=== PATIENT | female | born 1985 | race Caucasian/White ===

== ENCOUNTER → 2019-10-03 | Outpatient (CLI) | payer MEDICARE, OTHER ==
--- NOTE | 2019-10-03 22:49 | MR ---
EXAMINATION TYPE: MR brain wo/w con DATE OF EXAM: 10/03/2019 COMPARISON: Prior MRI brain February 13, 2016 HISTORY: MS, compare to 2016 MRI for progression TECHNIQUE: Multiplanar, multisequence images of the brain and brainstem is performed without and with IV contras t, utilizing 6 mL intravenous Gadavist gadolinium contrast is administered intravenously. Demyelinat ing disease protocol with additional Sagittal Flair sequence performed. FINDINGS: T2 Lesions Present : Yes Approximate Number of Lesions: Approximately 50 scattered Locations Identified : Scattered Size of Reference Lesion(s): 1. Stable right frontal periventricular lesion measuring 10 x 5 x 4 mm axial image 20 and sagittal im age 29 Enhancing Lesion(s) Present: Yes, for reference 4 mm deep parietal enhancing lesion axial image 19. T1 Hypointense Lesion(s) Present: Yes Change from Prior: New single enhancing lesion noted. Few new lesions suspected for reference smaller right frontal lesions axial image 23. Diffusion weighted images demonstrate no evidence of a recent infarct or other diffusion abnormality. There is no worrisome extra-axial fluid collection. The ventricular system and cisternal spaces ar e normal in size and appearance. The brain volume is age appropriate. Midline structures demonstrate normal morphology. The craniocervical junction appears within normal limits. Post contrast images demonstrate no abnormal enhancement. The dural venous sinuses appear pa tent. Some mucosal thickening bilateral sphenoid sinuses with new dependent fluid left sphenoid sinus axial image 10 and tiny air-fluid level left maxillary sinus now noted. IMPRESSION: 1. Moderate white matter changes redemonstrated presumed on the basis of known multiple sclerosis wit h progression in lesions felt present from 2016 study and new single enhancing lesion noted. 2. New acute on chronic paranasal sinus disease as detailed above.
--- NOTE | 2019-10-03 23:00 | MR ---
EXAMINATION TYPE: MR cspine/tspine wo con DATE OF EXAM: 10/03/2019 COMPARISON: Prior MRI cervical spine February 13, 2016. Prior MRI thoracic spine February 19, 2016. HISTORY: Multiple sclerosis with weakness. TECHNIQUE: Multiplanar, multisequence imaging of cervical and thoracic spine are performed without co ntrast, demyelinating protocol with additional PD sagittal sequence of the spine acquired. FINDINGS: C-SPINE: FINDINGS: Sagittal images of the cervical spine show the craniocervical junction to remains within no rmal limits. The cervical and upper thoracic spinal cord is normal in course and caliber. Redemonstr ation of subtle lesions of T2 hyperintensity for reference posterior 13 mm lesion centered C3 level a gain seen sagittal image 7. Additional smaller scattered lesions are seen better on current study whi ch is less artifact for reference posterior 4 mm lesion centered mid to inferior C6 level sagittal im age 7. Subtle roughly 8 mm lesion felt present near C4-C5 disc space level for reference sagittal lotus ge 6. Vertebral alignment is stable and anatomic. Persistent mild to moderate disc space narrowing C 3-C4 level. The vertebral body and intravertebral disk heights otherwise are normal. The bone marrow signal intensity is within normal limits. Axial images redemonstrate small left paracentral disc protrusion effacing the anterolateral thecal s ac at C3-C4 level on axial image 38. This is thought stable. Subtle posterior lesion inferior C2 level axial image 48 is not present on current study. Additional lesion posterior mid C3 levels axial image 41 is thought present extending better seen maximal dimens ion 38. Larger diffuse lesion C4-C5 level axial image 30. Subtle posterior lesion inferior C6 level a xial image 17. IMPRESSION: Better visualization or possible increased number of cervical spinal cord lesions as deta iled above. Latter is favored. Stable small disc herniation at C3-C4 level noted. T-SPINE: Spinal cord demonstrates normal course and caliber as passes through the thoracic spine. Redemonstrat ion of subtle roughly 9 mm lesion centered superior T10 level sagittal image 7 not significantly spear ged from prior. Vertebral body heights and alignment remain satisfactory. Bone marrow signal intensi ty is preserved. Tiny posterior disc herniations minimally effaces the anterior thecal sac lower thor acic levels unchanged from prior. Review of the axial images shows no significant spinal canal stenosis or neural foraminal narrowing a t any thoracic level. Axial images confirm subtle T2 hyperintense lesion centrally near T9-T10 disc space axial image 10. No additional definitive new thoracic lesions are identified. IMPRESSION: Stable faint T2 hyperintense lesion near superior T10 level. No definitive new thoracic s sergio cord lesions identified.
== END | disposition home or self-care (01) ==
LOC: RADMRIMAIN 19:15
PROVIDERS: ATTEND Psychiatry & Neurology Neurology
DX: G35 Multiple sclerosis (principal); R55 Syncope and collapse
CPT/HCPCS: 70553; 72141; 72146; A9585

== ENCOUNTER → 2020-06-02 | Outpatient (CLI) | payer MEDICARE ==
--- NOTE | 2020-06-02 14:04 | USB ---
Reason for exam: clinical finding. History: Patient is nulliparous. Taking hormonal contraceptives for 3 years beginning at age 18. Indicated problem(s): lump or thickening in the left breast. Physical Findings: Nurse Summary: left breast lump since January, pain at site comes and goes (nurse shavon). US Breast LT Left complete breast ultrasound includes all four quadrants, the retroareolar region and axilla. Finding demonstrates no cystic or solid lesion seen. These results were verbally communicated with the patient and result sheet given to the patient on 06/02/20. ASSESSMENT: Negative, BI-RAD 1 RECOMMENDATION: Routine screening mammogram of both breasts at age 42. (unless clinical indication to start sooner) Manage on a clinical basis with regard to pain and any suspicious palpable areas.
== END | disposition home or self-care (01) ==
LOC: RADUSWWP 11:30
PROVIDERS: ATTEND Family Medicine
DX: N63.21 Unspecified lump in the left breast, upper outer quadrant (principal)

== ENCOUNTER → 2021-05-26 | Outpatient (CLI) | payer BC, MEDICARE ==
--- NOTE | 2021-05-26 17:23 | XR ---
Nasal bones and facial bones HISTORY:[id number] CONTUSION OF THE NOSE 3 views of the facial bones, 4 views of the nasal bones submitted, no comparisons Bone mineralization is maintained. Orbits are intact. Paranasal sinuses are well aerated. Nasal bone is intact. IMPRESSION: No evident fracture or dislocation. CT scan could be performed for increased sensitivity as indicated.
== END | disposition home or self-care (01) ==
LOC: RADXRYALE 10:24
PROVIDERS: ATTEND Physician Assistant Medical
DX: S00.33XA Contusion of nose, initial encounter (principal)
CPT/HCPCS: 70140; 70160

== ENCOUNTER → 2021-07-22 | Outpatient (CLI) | payer MEDICARE ==
--- NOTE | 2021-07-22 12:23 | MR ---
EXAMINATION TYPE: MR brain wo/w con DATE OF EXAM: 07/22/2021 COMPARISON: 10/03/2019 HISTORY: MS follow up, compare to prior MRI 2019. CONTRAST: Performed utilizing 5.5 mL intravenous Gadavist gadolinium contrast. TECHNIQUE: Multiplanar, multiecho imaging on a 3.0 Sunshine magnet is performed through the brain. Stud y is performed within 24 hours of arrival to the hospital. The craniovertebral junction is normal. The pituitary is normal. Diffusion-weighted imaging is performed. There are scattered hyperintensities within the deep white matter may be acute plaques present. There are scattered bilateral white matter changes corresponding to the diffusion sequence abnormalit ies. Additional small white matter changes are present in addition. Findings are nonspecific but can be compatible with multiple sclerosis. These number greater than 10 on each side. Pattern distributio n appears similar to comparison. Reference lesions: 1. 1.0 x 0.6 cm right centrum semiovale frontal lobe series 2701, image 20. Prior measurement 1.0 x 0 .6 cm. 2. 0.9 x 0.8 cm left trilobar region, series 2701 image 18. Prior measurement 0.5 x 0.6 cm. Ventricles and sulci are appropriate for the patient age. No abnormal enhancement is evident. Enhancing lesions are not identified. IMPRESSIONS: 1. There appears to be some progression of the size is similar distribution of the previous white mat ter changes. Some of these plaques appear to be active with abnormal signal on diffusion.
--- NOTE | 2021-07-22 16:57 | MR ---
EXAMINATION TYPE: MR cspine/tspine wo/w con DATE OF EXAM: 07/22/2021 COMPARISON: 10/03/2019 HISTORY: MS follow up, compare to prior MRI 2019. CONTRAST: Performed utilizing 5.5 mL intravenous Gadavist gadolinium contrast. TECHNIQUE: Multiplanar multiecho imaging on a 3.0 Sunshine magnet is performed through the cervical spin e. FINDINGS: The craniovertebral junction is normal. Vertebral body alignment is normal. No focal disc herniations or significant disc bulges are evident. Disc hydration level preserved. No spinal canal stenosis or neural foraminal stenosis. Attention is paid to the cervical spinal cord. Previous subtle hyperintensity within the cord is not identified on current exam. IMPRESSIONS: 1. Apparent resolution of previous multiple sclerosis plaques within the spinal cord. No expansion or enhancement is evident. EXAMINATION TYPE: MR cspine/tspine wo/w con DATE OF EXAM: 07/22/2021 COMPARISON: 10/03/2019 HISTORY: MS follow up, compare to prior MRI 2019. CONTRAST: Performed utilizing 5.5 mL intravenous Gadavist gadolinium contrast. TECHNIQUE: Multiplanar, multiecho imaging on a 3.0 Sunshine magnet is performed through the thoracic spi ne. Spinal cord maintains normal signal through its visualized course. No suspicious atherosclerosis plaq ues evident. Previous T10 level plaque is not identified. Vertebral body alignment is normal. Vertebral body heights are preserved. Disc heights are preserved. Disc hydration levels are preserved. No spinal canal stenosis is evident. IMPRESSIONS: 1. Resolution previous lower thoracic spinal cord multiple sclerosis plaque.
== END | disposition home or self-care (01) ==
LOC: RADMRIMAIN 09:04
PROVIDERS: ATTEND Psychiatry & Neurology Neurology
DX: G35 Multiple sclerosis (principal)
CPT/HCPCS: 70553; 72156; 72157; A9585

== ENCOUNTER → 2022-06-30 | Outpatient (CLI) | payer MEDICARE ==
--- NOTE | 2022-07-01 09:21 | XR ---
EXAMINATION TYPE: XR chest 2V DATE OF EXAM: 06/30/2022 COMPARISON: NONE TECHNIQUE: PA and lateral views submitted. HISTORY: Cough FINDINGS: The lungs are clear and there is no pneumothorax, pleural effusion, or focal pneumonia. Hyperinflat ion correlate for asthma or COPD. Chronic appearing deformity posterior left lower rib cage. IMPRESSION: 1. Hyperexpansion of the lungs can be associated with COPD or asthma..
== END | disposition home or self-care (01) ==
LOC: RADXRYALE 16:35
PROVIDERS: ATTEND Physician Assistant Medical
DX: J44.9 Chronic obstructive pulmonary disease, unspecified (principal); Z86.16 Personal history of COVID-19
CPT/HCPCS: 71046

== ENCOUNTER → 2023-01-18 | Outpatient (CLI) | payer MEDICARE, OTHER ==
--- NOTE | 2023-01-18 17:32 | MR ---
EXAMINATION TYPE: MR brain/cspine wo DATE OF EXAM: 01/18/2023 5:06 PM CLINICAL INDICATION:Female, 37 years old with history of G35 MULTIPLE SCLEROSIS; Prior on synapse, MS follow up COMPARISON: 02/13/2016 TECHNIQUE: Multiplanar, multisequence images of the brain and brainstem is performed. Multi planar, multi sequence imaging was performed utilizing: T1-weighted, T2-weighted, and turbo inv ersion recovery imaging of the cervical spine. MR IV Contrast: None FINDINGS: BRAIN: Scattered high T2 signal within the periventricular white matter. Some of the lesion such as lesion i n the left parietal region now measuring 7 mm, previously 3 mm with an adjacent lesion measuring 5 mm which is new. Other areas of white matter change appears stable in size compared to 2016. No evidenc e for restricted diffusion. Diffusion weighted images demonstrate no evidence of a recent infarct or other diffusion abnormality. There is no extra-axial fluid collection or significant white matter signal abnormality. The ventr icular system and cisternal spaces are normal in size and appearance. The brain volume is age approp riate. Midline structures demonstrate normal morphology. The craniocervical junction appears within normal limits. The dural venous sinuses appear patent. The bone marrow signal is within normal limits. Paranasal sinuses and mastoid air cells: Moderate scattered paranasal sinus disease. Left mastoid air cell effusion. Visualized orbits: Orbital contents are intact. C-SPINE: Alignment: The cervical vertebral bodies have preserved heights. Alignment is within normal limits gi lesia patient positioning. Bones: Bone signal is within normal limits. Multilevel degenerative disc disease is noted and most p ronounced at the vertebral levels. Cord: Scattered high signal seen within the cord at the dorsal columns at the level C6 within the rig ht posterior spinal cord at the superior endplate of C5 and posteriorly at the level of C2. These are not clearly seen on prior but there was more motion artifact and poor resolution compared to today's exam. The area superior endplate of C5 is not definitively visualized. The dorsal columns at the lev el of C6 appears similar given differences in MRI. Discs: Intervertebral disc signal is maintained. C2-C3: No significant disc pathology. The spinal canal is patent. No neural foraminal stenosis. C3-C4: A disc osteophyte complex is present which minimally narrows the ventral subarachnoid space. Bilateral facet and uncovertebral joint arthropathy are present with mild bilateral neural foraminal stenosis. C4-C5: No significant disc pathology. The spinal canal is patent. No neural foraminal stenosis. C5-C6: No significant disc pathology. The spinal canal is patent. No neural foraminal stenosis. C6-C7: No significant disc pathology. The spinal canal is patent. No neural foraminal stenosis. C7-T1: No significant disc pathology. The spinal canal is patent. No neural foraminal stenosis. Other: None. IMPRESSION: 1. Scattered white matter changes which have mildly progressed since 2016, no evidence for active de myelination. No evidence of intracranial mass, acute/subacute infarct. Moderate paranasal sinus disea se. 2. Scattered cord signal abnormalities throughout the cervical spine. The C6 level signal abnormalit ies felt to be present on most recent prior. The cord signal abnormality at C5 superior endplate is n ot clearly seen on prior 3. As for significant spinal canal or neural foraminal stenosis. 4. Moderate paranasal sinus disease most pronounced in the maxillary sinuses.
--- NOTE | 2023-01-18 22:03 | MR ---
EXAMINATION TYPE: MR thoracic spine wo con DATE OF EXAM: 01/18/2023 5:14 PM COMPARISON: 10/03/2019, 07/22/2021 INDICATION: Patient age:Female; 37 years old; Reason for study: G35 MULTIPLE SCLEROSIS; MS follow up TECHNIQUE: Multi planar, multi sequence imaging was performed utilizing: T1-weighted, short-tau inver noelle recovery and T2-weighted of the thoracic spine. The patient was not given Gadolinium. IV Contrast: None FINDINGS: The thoracic vertebral bodies have preserved heights and alignment. The osseous structure have normal signal intensity. There is no evidence of extradural defects or central spinal canal narrowing at an y thoracic vertebral body level. Intervertebral discs demonstrate normal signal intensity. Increased spinal cord signal centrally extending partially 8 mm in caudocranial dimension at the leve l of T10 superior endplate. This is not definitely seen on immediate prior but present on 10/03/2019. IMPRESSION: 1. Spinal cord lesion at the level of T10 not definitively seen on immediate prior but on prior befo re that on 10/03/2019. This is located centrally in the spinal cord. 2. No evidence for significant spinal canal or neural foraminal stenosis.
== END | disposition home or self-care (01) ==
LOC: RADMRIMAIN 15:30
PROVIDERS: ATTEND Psychiatry & Neurology Neurology
DX: G35 Multiple sclerosis (principal); G93.89 Other specified disorders of brain; G95.89 Other specified diseases of spinal cord; J34.89 Other specified disorders of nose and nasal sinuses
CPT/HCPCS: 70551; 72141; 72146

== ENCOUNTER 2024-01-12 14:12 | Observation (INO) | payer MEDICARE, OTHER ==
[2024-01-12] MEDS: SODIUM CHLORIDE 0.9% 1,000 ML IV STA (15:02)
[2024-01-12] MEDS: ONDANSETRON 4 MG/2 ML VIAL IVP STA (15:02)
[2024-01-12] MEDS: MORPHINE SULFATE 2 MG/ML SYRINGE IVP ONE (15:05)
--- NOTE | 2024-01-12 15:12 | ED ---
Abdominal Pain HPI - General Chief Complaint: Abdominal Pain Stated Complaint: abd pain Time Seen by Provider: 01/12/24 14:30 Source: patient, RN notes reviewed Mode of arrival: ambulatory Limitations: no limitations - History of Present Illness Initial Comments: 38-year-old female chief complaint of diffuse abdominal pain that started this afternoon. Patient states that she went to work this morning and started having severe abdominal pain with associated bloating. Patient states that when she sits experience this abdominal pain she is also had associated nausea and vomiting since. She denies known fevers at home. 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 Patient still has her gallbladder and appendix, denies history of pancreatitis or GI bleeds. Denies hematochezia, hematemesis, dyschezia, dysuria. States her last bowel movement was this morning that was regular and formed. - Related Data Home Medications Medication Instructions Recorded Confirmed Albuterol Inhaler [Ventolin Hfa 1 - 2 puff INHALATION Q6HR PRN 05/06/16 05/12/16 Inhaler] L.acidoph,Paracasei, B.lactis 1 each PO DAILY 05/06/16 05/12/16 [Probiotic] Multivitamins, Thera [Multivitamin] 1 tab PO DAILY 05/06/16 05/06/16 Albuterol Nebulized [Ventolin 2.5 mg INHALATION RT-Q4H PRN 01/12/24 01/12/24 Nebulized] Montelukast [Singulair] 10 mg PO HS 01/12/24 01/12/24 Vitamin B-12(Unknown Dose) 1 tab PO DAILY 01/12/24 01/12/24 Vitamin D3(Unknown Dose) 1 tab PO DAILY 01/12/24 01/12/24 predniSONE See Taper PO DIRECTED 01/12/24 01/12/24 Allergies Allergy/AdvReac Type Severity Reaction Status Date / Time erythromycin base AdvReac Unknown Nausea & Verified 01/12/24 14:27 Vomiting Review of Systems ROS Statement: Those systems with pertinent positive or pertinent negative responses have been documented in the HPI. ROS Other: All systems not noted in ROS Statement are negative. Past Medical History Past Medical History: Asthma, Fibromyalgia, GERD/Reflux Additional Past Medical History / Comment(s): GASTROSCHISIS AT , CONSTIPATION, MULTIPLE SCLEROSIS- STATES SHES "CLUMSY". STATES EYES ARE LIGHT SENSITIVE AND BILATERAL HEARING LOSS, BROKEN NOSE & SINUS CYSTS. , USES MARIJUANA AND YOGA FOR PAIN . History of Any Multi-Drug Resistant Organisms: None Reported Past Surgical History: Adenoidectomy, Section, Tonsillectomy Additional Past Surgical History / Comment(s): GASTROSCHISIS SURGERY, UMBILICAL SURGERY AT 4 YRS OLD. Past Anesthesia/Blood Transfusion Reactions: No Reported Reaction, Family History of Problems w/ Anesthesia Additional Past Anesthesia/Blood Transfusion Reaction / Comment(s): MOTHER=PONV Past Psychological History: Anxiety, Depression Smoking Status: Never smoker Past Alcohol Use History: Daily Past Drug Use History: Marijuana - Past Family History Mother Family Medical History: Cancer Additional Family Medical History / Comment(s): CLL General Exam Limitations: no limitations General appearance: in no apparent distress, other (Diaphoretic) Head exam: Present: atraumatic, normocephalic, normal inspection Eye exam: Present: normal appearance, PERRL, EOMI. Absent: scleral icterus, conjunctival injection, periorbital swelling ENT exam: Present: normal exam, mucous membranes moist Neck exam: Present: normal inspection. Absent: tenderness, meningismus, lymphadenopathy Respiratory exam: Present: normal lung sounds bilaterally. Absent: respiratory distress, wheezes, rales, rhonchi, stridor Cardiovascular Exam: Present: regular rate, normal rhythm, normal heart sounds. Absent: systolic murmur, diastolic murmur, rubs, gallop, clicks GI/Abdominal exam: Present: soft, distended, tenderness (diffuse tenderness to percussion). Absent: guarding Course Vital Signs 01/12/24 01/12/24 14:24 16:23 Temperature 97.8 F Pulse Rate 56 L 55 L Respiratory 18 20 Rate Blood Pressure 170/80 159/87 O2 Sat by Pulse 100 99 Oximetry Medical Decision Making - Medical Decision Making Was pt. sent in by a medical professional or institution (, PA, HUMAN RELATIONS TEACHER, urgent care, hospital, or assisted...) When possible be specific @ -No Did you speak to anyone other than the patient for history (EMS, parent, family, police, friend...)? What history was obtained from this source @ -No Did you review nursing and triage notes (agree or disagree)? Why? @ -I reviewed and agree with nursing and triage notes Were old charts reviewed (outside hosp., previous admission, EMS record, old EKG, old radiological studies, urgent care reports/EKG's, assisted records)? Report findings @ -No old charts were reviewed Differential Diagnosis (chest pain, altered mental status, abdominal pain women, abdominal pain men, vaginal bleeding, weakness, fever, dyspnea, syncope, headache, dizziness, GI bleed, back pain, seizure, CVA, palpatations, mental health, musculoskeletal)? @ -Differential Abdominal Pain Women: Appendicitis, Cholecystitis, diverticulosis, ischemic bowel, pancreatitis, hepatitis, UTI, gastroenteritis, AAA, incarcerated hernia, bowel obstruction, constipation, inflammatory bowel, hepatitis, peptic ulcer disease, splenic infarction, perforated viscus, vulvitis, ovarian torsion, PID, kidney stone, placenta abruption, this is not meant to be an all-inclusive list EKG interpreted by me (3pts min.). @ -None X-rays interpreted by me (1pt min.). @ -xray of KUB reveals nonspecific after with dilated loops in the upper abdomen cannot exclude obstructive pattern. CT interpreted by me (1pt min.). @ - CT abdomen pelvis with contrast reveals endings worrisome for malignancy and omental metastatic, recommend follow-up CT scan with oral and IV contrast U/S interpreted by me (1pt. min.). @ -None done What testing was considered but not performed or refused? (CT, X-rays, U/S, labs)? Why? @ -None What meds were considered but not given or refused? Why? @ -None Did you discuss the management of the patient with other professionals (professionals i.e. , PA, HUMAN RELATIONS TEACHER, lab, RT, psych nurse, social work manager, android platform developer, teacher, aoc aadc operations staff officer, case maker)? Give summary @ -No Was smoking cessation discussed for >3mins.? @ -No Was critical care preformed (if so, how long)? @ -No Were there social determinants of health that impacted care today? How? (Homelessness, low income, unemployed, alcoholism, drug addiction, transportation, low edu. Level, literacy, decrease access to med. care, senior living, rehab)? @ -No Was there de-escalation of care discussed even if they declined (Discuss DNR or withdrawal of care, Hospice)? DNR status @ -No What co-morbidities impacted this encounter? (DM, HTN, Smoking, COPD, CAD, Cancer, CVA, ARF, Chemo, Hep., AIDS, mental health diagnosis, sleep apnea, morbi d obesity)? @ -None Was patient admitted / discharged? Hospital course, mention meds given and route , prescriptions, significant lab abnormalities, going to OR and other pertinent info. @ -Admitted. 38-year-old female chief complaint of abdominal pain. Patient was diaphoretic and in pain on presentation. Patient's abdomen was extremely tender on examination, with percussion causing diffuse pain. Abdominal x-ray was ordered initially to rule out acute process which revealed xray of KUB reveals nonspecific after with dilated loops in the upper abdomen cannot exclude obstructive pattern. Laboratory results revealed leukocytosis of 19 and neutrophil fills elevated at 16.2. Patient CMP within normal limits, normal coagulation profile, urinalysis positive for 2+ ketones, trace protein and trace blood. CT abdomen pelvis with contrast reveals endings worrisome for malignancy and omental metastatic, recommend follow-up CT scan with oral and IV contrast. Carolyn these findings with the patient and recommend outpatient follow- up for further imaging and evaluation with her primary care provider and referral to a foot cutter since she has not seen one in a couple years. Due to patient's intractable pain, would recommend admission. I discussed this patient's case with Dr. Francis, who is agreeable with admission and for oncology recommendation for potential staging. I discussed this case with my attending Dr. Bryant was agreeable with plan and admission. She will be admitted for intractable pain and potential mets. Undiagnosed new problem with uncertain prognosis? @ -yes,, patient CT findings are concerning for abdominal cancer, patient was unaware of these findings to previous. Drug Therapy requiring intensive monitoring for toxicity (Heparin, Nitro, Insulin, Cardizem)? @ -No Were any procedures done? @ -No Diagnosis/symptom? @ -intractable pain, abdominal pain, mets Acute, or Chronic, or Acute on Chronic? @ -Acute Uncomplicated (without systemic symptoms) or Complicated (systemic symptoms)? @ -complicated Side effects of treatment? @ -No Exacerbation, Progression, or Severe Exacerbation? @ -No Poses a threat to life or bodily function? How? (Chest pain, USA, CA, pneumonia, PE, COPD, DKA, ARF, appy, cholecystitis, CVA, Diverticulitis, Homicidal, Suicidal, threat to staff... and all critical care pts) @ -Yes, un-staged and treated metastatic disease can lead to organ dysfunction and potential . - Lab Data Result diagrams: 01/12/24 14:44 01/12/24 14:44 Lab Results 01/12/24 01/12/24 01/12/24 Range/Units 14:44 14:44 14:44 WBC 19.0 H (3.8-10.6) k/uL RBC 4.93 (3.80-5.40) m/uL Hgb 15.7 (11.4-16.0) gm/dL Hct 46.1 H (34.0-46.0) % MCV 93.5 (80.0-100.0) fL MCH 31.8 (25.0-35.0) pg MCHC 34.0 (31.0-37.0) g/dL RDW 12.8 (11.5-15.5) % Plt Count 374 (150-450) k/uL MPV 7.3 Neutrophils % 85 % Lymphocytes % 9 % Monocytes % 4 % Eosinophils % 1 % Basophils % 0 % Neutrophils # 16.2 H (1.3-7.7) k/uL Lymphocytes # 1.7 (1.0-4.8) k/uL Monocytes # 0.7 (0-1.0) k/uL Eosinophils # 0.1 (0-0.7) k/uL Basophils # 0.1 (0-0.2) k/uL PT (10.0-12.5) sec INR (<1.2) APTT (22.0-30.0) sec Sodium (137-145) mmol/L Potassium (3.5-5.1) mmol/L Chloride (98-107) mmol/L Carbon Dioxide (22-30) mmol/L Anion Gap mmol/L BUN (7-17) mg/dL Creatinine (0.52-1.04) mg/dL Est GFR (CKD-EPI)AfAm (>60 ml/min/1.73 sqM) Est GFR (CKD-EPI)NonAf (>60 ml/min/1.73 sqM) Glucose (74-99) mg/dL Plasma Lactic Acid Chuck (0.7-2.0) mmol/L Calcium (8.4-10.2) mg/dL Total Bilirubin (0.2-1.3) mg/dL AST (14-36) U/L ALT (4-34) U/L Alkaline Phosphatase (38-126) U/L Total Protein (6.3-8.2) g/dL Albumin (3.5-5.0) g/dL Amylase (30-110) U/L Lipase (23-300) U/L Urine Color Yellow Urine Appearance Clear (Clear) Urine pH 5.5 (5.0-8.0) Ur Specific [place] >1.050 H (1.001-1.035) Urine Protein Trace H (Negative) Urine Glucose (UA) Negative (Negative) Urine Ketones 2+ H (Negative) Urine Blood Trace H (Negative) Urine Nitrite Negative (Negative) Urine Bilirubin Negative (Negative) Urine Urobilinogen <2.0 (<2.0) mg/dL Ur Leukocyte Esterase Negative (Negative) Urine RBC 4 (0-5) /hpf Urine WBC <1 (0-5) /hpf Ur Squamous Epith Cells 5 H (0-4) /hpf Hyaline Casts 1 (0-2) /lpf Urine Mucus Few H (None) /hpf Urine HCG, Qual Not Detected (Not Detectd) 01/12/24 01/12/24 01/12/24 Range/Units 14:44 14:44 16:05 WBC (3.8-10.6) k/uL RBC (3.80-5.40) m/uL Hgb (11.4-16.0) gm/dL Hct (34.0-46.0) % MCV (80.0-100.0) fL MCH (25.0-35.0) pg MCHC (31.0-37.0) g/dL RDW (11.5-15.5) % Plt Count (150-450) k/uL MPV Neutrophils % % Lymphocytes % % Monocytes % % Eosinophils % % Basophils % % Neutrophils # (1.3-7.7) k/uL Lymphocytes # (1.0-4.8) k/uL Monocytes # (0-1.0) k/uL Eosinophils # (0-0.7) k/uL Basophils # (0-0.2) k/uL PT 10.7 (10.0-12.5) sec INR 1.0 (<1.2) APTT 23.4 (22.0-30.0) sec Sodium 137 (137-145) mmol/L Potassium 3.7 (3.5-5.1) mmol/L Chloride 110 H (98-107) mmol/L Carbon Dioxide 16 L (22-30) mmol/L Anion Gap 11 mmol/L BUN 11 (7-17) mg/dL Creatinine 0.58 (0.52-1.04) mg/dL Est GFR (CKD-EPI)AfAm >90 (>60 ml/min/1.73 sqM) Est GFR (CKD-EPI)NonAf >90 (>60 ml/min/1.73 sqM) Glucose 132 H (74-99) mg/dL Plasma Lactic Acid Chuck 1.3 (0.7-2.0) mmol/L Calcium 9.4 (8.4-10.2) mg/dL Total Bilirubin 1.3 (0.2-1.3) mg/dL AST 21 (14-36) U/L ALT 18 (4-34) U/L Alkaline Phosphatase 90 (38-126) U/L Total Protein 7.2 (6.3-8.2) g/dL Albumin 4.7 (3.5-5.0) g/dL Amylase 79 (30-110) U/L Lipase 179 (23-300) U/L Urine Color Urine Appearance (Clear) Urine pH (5.0-8.0) Ur Specific [place] (1.001-1.035) Urine Protein (Negative) Urine Glucose (UA) (Negative) Urine Ketones (Negative) Urine Blood (Negative) Urine Nitrite (Negative) Urine Bilirubin (Negative) Urine Urobilinogen (<2.0) mg/dL Ur Leukocyte Esterase (Negative) Urine RBC (0-5) /hpf Urine WBC (0-5) /hpf Ur Squamous Epith Cells (0-4) /hpf Hyaline Casts (0-2) /lpf Urine Mucus (None) /hpf Urine HCG, Qual (Not Detectd) Disposition Clinical Impression: Intractable abdominal pain Disposition: [facility] Condition: Poor Referrals: Jeremiah Benites DO [Primary Care Provider] - 1-2 days Decision to Admit Reason: Admit from EC Decision Time: 17:54
[2024-01-12 15:19] LABS: Basophils # (A) 0.1 k/uL (0-0.2); Basophils % (A) 0 %; Eosinophils # (A) 0.1 k/uL (0-0.7); Eosinophils % (A) 1 %; HCT 46.1 % (34.0-46.0); HGB 15.7 gm/dL (11.4-16.0); Lymphocytes # (A) 1.7 k/uL (1.0-4.8); Lymphocytes % (A) 9 %; MCH 31.8 pg (25.0-35.0); MCV 93.5 fL (80.0-100.0); Mean Platelet Volume 7.3; Monocytes # (A) 0.7 k/uL (0-1.0); Monocytes % (A) 4 %; Neutrophils # (A) 16.2 k/uL (1.3-7.7); Neutrophils % (A) 85 %; Platelet Count 374 k/uL (150-450); RBC 4.93 m/uL (3.80-5.40); RDW 12.8 % (11.5-15.5)
--- NOTE | 2024-01-12 15:46 | XR ---
EXAMINATION TYPE: XR KUB DATE OF EXAM: 01/12/2024 COMPARISON: NONE HISTORY: Abdominal pain TECHNIQUE: One view abdominal series FINDINGS: The osseous structures are intact. The bowel gas pattern is nonspecific. Dilated bowel loops in the upper abdomen. Obstruction in the differential diagnosis. Lung bases are clear. Calcifications in the right upper quadrant. IMPRESSION: 1. Nonspecific abdomen. Dilated bowel loops in the upper abdomen. Could not exclude an obstructive p attern. Assessment for free air limited. Recommend CT scan of the abdomen and pelvis.
[2024-01-12 15:49] LABS: ALT 18 U/L (4-34); AST 21 U/L (14-36); African American GFR (CKD) >90 (>60 ml/min/1.73 sqM); Albumin 4.7 g/dL (3.5-5.0); Alkaline Phosphatase 90 U/L (38-126); Amylase 79 U/L (30-110); Anion Gap 11 mmol/L; Blood Urea Nitrogen 11 mg/dL (7-17); Calcium 9.4 mg/dL (8.4-10.2); Carbon Dioxide 16 mmol/L (22-30); Chloride 110 mmol/L (98-107); Glucose 132 mg/dL (74-99); Lipase 179 U/L (23-300); Non-African American GFR(CKD) >90 (>60 ml/min/1.73 sqM); Potassium 3.7 mmol/L (3.5-5.1); Sodium 137 mmol/L (137-145); Total Bilirubin 1.3 mg/dL (0.2-1.3); Total Protein 7.2 g/dL (6.3-8.2)
--- NOTE | 2024-01-12 16:12 | CT ---
EXAMINATION TYPE: CT abdomen pelvis w con CT DLP: 588.5 mGycm, Automated exposure control for dose reduction was used. DATE OF EXAM: 01/12/2024 3:48 PM COMPARISON: CT abdomen pelvis most recent from CLINICAL INDICATION:Female, 38 years old with history of abdominal pain; generalized abd pain. TECHNIQUE: Axial CT abdomen pelvis w con;Sagittal and coronal reformats were created on a separate w orkstation. Contrast used:100 ml mL of Isovue 300 with IV Contrast, (none if empty) Oral contrast used: without Oral Contrast (none if empty) FINDINGS: LOWER CHEST: Unremarkable ABDOMEN LIVER: Unremarkable GALLBLADDER AND BILE DUCTS: Unremarkable. PANCREAS: Unremarkable. SPLEEN: Unremarkable. ADRENAL GLANDS: Unremarkable. KIDNEYS AND URETERS: No evidence of hydronephrosis or renal calculus. The ureters are unremarkable. PELVIS BLADDER: Unremarkable REPRODUCTIVE: Unremarkable. ABDOMEN & PELVIS STOMACH AND BOWEL: No evidence of bowel obstruction. PERITONEUM/RETROPERITONEUM: The omentum and peritoneum appear as a nearly opaque fung Blob. The study must be repeated with oral contrast. Repeat study should be performed with both IV and oral contrast . There is concern for omental cake from a metastatic tumor. VASCULATURE: No evidence of aortic aneurysm. MUSCULOSKELETAL: No acute osseous abnormalities LYMPH NODES: No gross evidence for lymphadenopathy. SOFT TISSUE/ABDOMINAL WALL: Peritoneal metastatic disease may be present, but is not readily visible. IMPRESSION: 1. Findings worrisome for malignancy and omental metastatic. Follow-up CT scan with IV and oral contrast same time would be helpful. If laboratory studies indicate malignancy consider FDG PET-CT fo r initial staging
[2024-01-12] MEDS: HYDROmorphone 1 MG/ML 1 ML SYRINGE IVP STA (16:27)
[2024-01-12 16:44] LABS: Partial Thromboplastin Time 23.4 sec (22.0-30.0); Prothrombin Time 10.7 sec (10.0-12.5)
[2024-01-12 16:57] LABS: Appearance,Urine Clear (Clear); Bilirubin,Urine Negative (Negative); Blood,Urine Trace (Negative); Color,Urine Yellow; Glucose,Urine (UA) Negative (Negative); Hyaline Casts,Urine 1 /lpf (0-2); Leukocyte Esterase,Urine Negative (Negative); Mucus,Urine Few /hpf; Nitrite,Urine Negative (Negative); PH, Urine 5.5 (5.0-8.0); Protein,Urine Trace (Negative); RBC,Urine 4 /hpf (0-5); Squamous Epithelial Cell,Urine 5 /hpf (0-4); Urobilinogen,Urine <2.0 mg/dL (<2.0); WBC,Urine <1 /hpf (0-5)
[2024-01-12 16:59] LABS: Ketones,Urine 2+ (Negative); Specific Gravity,Urine >1.050 (1.001-1.035)
[2024-01-12] MEDS ORDERED: NALOXONE 0.4 MG/ML 1 ML VIAL IV PRN (17:51)
[2024-01-12] MEDS ORDERED: HYDROmorphone 1 MG/ML 1 ML SYRINGE IVP PRN (17:51)
[2024-01-12] MEDS: HYDROmorphone 1 MG/ML 1 ML SYRINGE IVP PRN (18:34)
[2024-01-12] MEDS: ONDANSETRON 4 MG/2 ML VIAL IVP PRN (18:37)
[2024-01-13] MEDS: ONDANSETRON 4 MG/2 ML VIAL IVP PRN (00:50)
[2024-01-13] MEDS: MORPHINE SULFATE 2 MG/ML SYRINGE IVP STA (02:18)
--- NOTE | 2024-01-13 03:00 | P.HPIM ---
History of Present Illness H&P Date: 01/12/24 Patient is a 38-year-old female with a PMH of congenital gastroschisis status post repair at who presents to the emergency room with complaints of abdominal pain and bloating. 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 She subsequently had a regular bowel movement without blood or mucus. Reports the pain is constant, 5 out of 10 at the time of interview, nonradiating, worsened with movement. Patient notes she still has her gallbladder and her appendix. Reports that her menses have been irregular over the past few months and that she is currently 2 weeks late. She denied experiencing urinary symptoms, chest discomfort, shortness of breath, fever, chills, cough, diarrhea. CT abdomen and pelvis in the emergency room was a poor study with findings concerning for malignancy and possible omental metastasis. Repeat imaging with IV and oral contrast was recommended. Laboratory evaluation revealed leukocytosis of 19.0, CO2 16, chloride 110, UA with 2+ ketones with trace blood with urine hCG negative. ED documentation reviewed and case discussed with ED provider. Review of systems: Pertinent positives and negatives as discussed in HPI, a complete review of systems was performed and all other systems are negative. Physical examination: Vital signs reviewed General: non toxic, no distress, appears at stated age, normal weight Derm: no unusual rashes/lesions, warm Head: atraumatic, normocephalic, symmetric Eyes: EOMI, no lid lag, anicteric sclera, pupils equal round reactive to light ENT: Nose and ears atraumatic Neck: No cervical lymphadenopathy, trachea midline, supple Mouth: no lip lesion, mucus membranes moist Cardiovascular: S1S2 reg, no murmur, positive dorsalis pedis pulse bilateral, no edema Lungs: CTA bilateral, no rhonchi, no rales, no accessory muscle use Abdominal: soft, mild periumbilical tenderness, no guarding Ext: muscle strength 5 out of 5 in all 4 extremities grossly, no gross muscle atrophy, no contractures, Neuro: CN II-XI grossly intact, no gross focal neuro deficits Psych: Alert, oriented, appropriate affect Assessment: Abdominal pain with abnormal CT scan findings, suspected malignancy Leukocytosis, likely secondary to acute stressor with no signs of active infection at this time Imaging: CT abdomen and pelvis in the emergency room was a poor study with findings concerning for malignancy and possible omental metastasis. Repeat imaging with IV and oral contrast was recommended. Data Review: Laboratory evaluation revealed leukocytosis of 19.0, CO2 16, chloride 110, UA with 2+ ketones with trace blood with urine hCG negative. Plan: Obtain repeat CT abdomen and pelvis with contrast Pain control Monitor CBC DVT prophylaxis: Lovenox subcu The patient is admitted with an anticipated greater than 2 midnight stay for evaluation of abdominal pain CODE STATUS: Full Code Discussed with: Patient Anticipated discharge place: Home Past Medical History Past Medical History: Asthma, Fibromyalgia, GERD/Reflux Additional Past Medical History / Comment(s): GASTROSCHISIS AT , CONSTIPATION, MULTIPLE SCLEROSIS- STATES SHES "CLUMSY". STATES EYES ARE LIGHT SENSITIVE AND BILATERAL HEARING LOSS, BROKEN NOSE & SINUS CYSTS. , USES MARIJUANA AND YOGA FOR PAIN . History of Any Multi-Drug Resistant Organisms: None Reported Past Surgical History: Adenoidectomy, Section, Tonsillectomy Additional Past Surgical History / Comment(s): GASTROSCHISIS SURGERY, UMBILICAL SURGERY AT 4 YRS OLD. Past Anesthesia/Blood Transfusion Reactions: No Reported Reaction, Family History of Problems w/ Anesthesia Additional Past Anesthesia/Blood Transfusion Reaction / Comment(s): MOTHER=PONV Past Psychological History: Anxiety, Depression Smoking Status: Never smoker Past Alcohol Use History: Daily Past Drug Use History: Marijuana - Past Family History Mother Family Medical History: Cancer Additional Family Medical History / Comment(s): CLL Medications and Allergies Home Medications Medication Instructions Recorded Confirmed Type Albuterol Inhaler [Ventolin Hfa 2 puff INHALATION RT-QID PRN 05/06/16 01/12/24 History Inhaler] L.acidoph,Paracasei, B.lactis 1 cap PO DAILY 05/06/16 01/12/24 History [Probiotic] Multivitamins, Thera [Multivitamin] 1 tab PO DAILY 05/06/16 01/12/24 History Albuterol Nebulized [Ventolin 2.5 mg INHALATION RT-Q4H PRN 01/12/24 01/12/24 History Nebulized] Montelukast [Singulair] 10 mg PO HS 01/12/24 01/12/24 History Vitamin B-12(Unknown Dose) 1 tab PO DAILY 01/12/24 01/12/24 History Vitamin D3(Unknown Dose) 1 tab PO DAILY 01/12/24 01/12/24 History predniSONE See Taper PO DIRECTED 01/12/24 01/12/24 History Allergies Allergy/AdvReac Type Severity Reaction Status Date / Time erythromycin base AdvReac Unknown Nausea & Verified 01/12/24 14:27 Vomiting Physical Exam Vitals: Vital Signs Temp Pulse Resp BP Pulse Ox 01/12/24 23:15 98.4 F 72 20 138/58 98 01/12/24 18:59 98.1 F 64 144/79 97 01/12/24 18:32 98.3 F 61 18 150/84 99 01/12/24 16:23 55 L 20 159/87 99 01/12/24 14:24 97.8 F 56 L 18 170/80 100 Intake and Output 01/12/24 01/12/24 01/13/24 14:59 22:59 06:59 Other: Weight 55.792 kg Results CBC & Chem 7: 01/12/24 14:44 01/12/24 14:44 Labs: Abnormal Lab Results - Last 24 Hours (Table) 01/12/24 01/12/24 01/12/24 Range/Units 14:44 14:44 14:44 WBC 19.0 H (3.8-10.6) k/uL Hct 46.1 H (34.0-46.0) % Neutrophils # 16.2 H (1.3-7.7) k/uL Chloride 110 H (98-107) mmol/L Carbon Dioxide 16 L (22-30) mmol/L Glucose 132 H (74-99) mg/dL Ur Specific [place] >1.050 H (1.001-1.035) Urine Protein Trace H (Negative) Urine Ketones 2+ H (Negative) Urine Blood Trace H (Negative) Ur Squamous Epith Cells 5 H (0-4) /hpf Urine Mucus Few H (None) /hpf
[2024-01-13] MEDS: MORPHINE SULFATE 4 MG/ML SYRINGE IVP PRN (07:55)
[2024-01-13] MEDS ORDERED: ALBUTEROL NEBULIZED 2.5 MG/3 ML INHALATION PRN (08:22)
[2024-01-13 08:35] LABS: HCT 44.6 % (34.0-46.0); HGB 14.4 gm/dL (11.4-16.0); MCH 31.1 pg (25.0-35.0); MCHC 32.3 g/dL (31.0-37.0); MCV 96.4 fL (80.0-100.0); Mean Platelet Volume 7.2; Platelet Count 291 k/uL (150-450); RBC 4.62 m/uL (3.80-5.40); RDW 12.6 % (11.5-15.5); WBC 17.5 k/uL (3.8-10.6)
--- NOTE | 2024-01-13 08:45 | P.PN ---
Subjective Progress Note Date: 01/13/24 Hospital course: Patient is a very pleasant 38-year-old female with a past medical history of congenital gastroschisis status postrepair at , multiple sclerosis, asthma, GERD, and fibromyalgia. She presented to the emergency department with a chief complaint of abdominal pain and bloating. Upon arrival to our facility, patient underwent evaluation. Vital signs upon arrival show blood pressure 170/80, heart rate 56, respiratory rate 18, temp 97.8 F, and SpO2 100% on room air. Labs were completed and reviewed. CBC showing leukocytosis with WBC count of 19.0. Coagulation profile normal findings. BMP revealing non-anion gap metabolic acidosis with chloride of 110, bicarb 16, and anion gap of 11. Blood glucose was 132. Lactic acid was 1.3. Liver profile unremarkable. Amylase and lipase were normal findings. Urinalysis positive for protein, ketones, and trace blood negative for infection. Urine hCG negative. KUB showing dilated loops of bowel in upper abdomen. CT abdomen and pelvis showing acute process identified in the abdomen and pelvis appearing to be associated with large bowel and a severe colitis versus differential metastasis should be ruled out. Physical exam: Vital signs reviewed and stable. General: Nontoxic, no distress and appears stated age. Derm: Skin warm and dry, normal coloration for ethnicity. Head: Atraumatic, normocephalic and symmetric. Eyes: EOMs intact, no lid lag, and anicteric sclera Mouth: no lip lesions, mucus membranes moist Cardiovascular: regular rate and rhythm with normal S1S2, no murmur, positive posterior tibial pulses bilaterally, and cap refill < 2 seconds. Lungs: Respirations even, regular, and unlabored on room air. Lungs CTA bilaterally, no rhonchi, no rales, no wheezing, and no accessory muscle usage. Abdominal: soft, diffuse tenderness upon palpation, no guarding, no appreciable organomegaly Ext: ROM intact. No gross muscle atrophy, no edema, no contractures Neuro: Speech clear, face symmetrical and CN II-XII grossly intact with no noted focal neuro deficits Psych: Alert and oriented to person, place, time, and situation. Appropriate and pleasant affect. Assessment and Plan of Care: Intractable abdominal pain, rule out severe colitis versus metastatic process Leukocytosis History of congenital gastroschisis status postrepair at Multiple sclerosis GERD -Order placed for ESR and CRP, once obtained will likely start patient on IV steroids -Order placed for CT abdomen and pelvis with oral and IV contrast -Orders placed for C. difficile, stool calprotectin, stool lactoferrin, and stool culture. -Continue symptomatic care and pain management. Zofran 4 mg IVP every 4 hours as needed for nausea and/or vomiting. Morphine 4 mg IVP as needed for pain. -Clear liquid diet -Gentle IV fluid hydration with 0.9% normal saline at 100 cc/h. -Consult placed to general surgeon for evaluation regarding severe colitis versus metastatic process. -Patient placed on GI prophylaxis with Protonix 40 mg IVP daily -Patient started on Lovenox 40 mg subcu daily for DVT prophylaxis. -May consider starting patient on IV steroids pending ESR and CRP and CT results. Asthma, not in acute exacerbation -Continue Singulair 10 mg nightly and Ventolin nebulizer treatments every 4 hours as needed for shortness of breath and/or wheezing. Data and imaging reviewed: Morning labs reviewed. CBC showing continued leukocytosis with WBC count decr easing slightly to 17.5. BMP showing near resolution of metabolic acidosis with chloride of 106, bicarb of 21, and anion gap of 8. Vital signs reviewed. Blood pressure 125/68, heart rate 72, respiratory rate 16, temp 98.1 F, and SpO2 of 97% on room air. CODE STATUS: Full code DVT prophylaxis: Lovenox Anticipated discharge date: Clinical course to determine Anticipated discharge place: Home Patient was seen independently by Nurse Pracitioner. This document was prepared using [employer] dictation software. Please allow for errors in clergy member, while rare they do occur. Yong Gaines NP rendered care for this patient independently, reviewed the findings and plan as documented in the note above. I did not physically speak with or examine the patient on this date. Objective - Vital Signs Vital signs: Vital Signs Temp 98.1 F 01/13/24 07:43 Pulse 72 01/13/24 07:43 Resp 16 01/13/24 07:43 BP 125/68 01/13/24 07:43 Pulse Ox 97 01/13/24 07:43 FiO2 Intake & Output 01/12/24 01/13/24 01/13/24 18:59 06:59 18:59 Intake Total 500 Balance 500 Weight 55.792 kg 55.792 kg Intake: Oral 500 Other: Voiding Method Toilet # Voids 1 - Labs CBC & Chem 7: 01/13/24 07:20 01/13/24 07:20 Labs: Abnormal Lab Results - Last 24 Hours (Table) 01/12/24 01/12/24 01/12/24 Range/Units 14:44 14:44 14:44 WBC 19.0 H (3.8-10.6) k/uL Hct 46.1 H (34.0-46.0) % Neutrophils # 16.2 H (1.3-7.7) k/uL Chloride 110 H (98-107) mmol/L Carbon Dioxide 16 L (22-30) mmol/L Glucose 132 H (74-99) mg/dL Ur Specific [place] >1.050 H (1.001-1.035) Urine Protein Trace H (Negative) Urine Ketones 2+ H (Negative) Urine Blood Trace H (Negative) Ur Squamous Epith Cells 5 H (0-4) /hpf Urine Mucus Few H (None) /hpf 01/13/24 Range/Units 07:20 WBC 17.5 H (3.8-10.6) k/uL Hct (34.0-46.0) % Neutrophils # (1.3-7.7) k/uL Chloride (98-107) mmol/L Carbon Dioxide (22-30) mmol/L Glucose (74-99) mg/dL Ur Specific [place] (1.001-1.035) Urine Protein (Negative) Urine Ketones (Negative) Urine Blood (Negative) Ur Squamous Epith Cells (0-4) /hpf Urine Mucus (None) /hpf
[2024-01-13 08:52] LABS: African American GFR (CKD) >90 (>60 ml/min/1.73 sqM); Anion Gap 8 mmol/L; Blood Urea Nitrogen 12 mg/dL (7-17); Calcium 8.7 mg/dL (8.4-10.2); Carbon Dioxide 21 mmol/L (22-30); Chloride 106 mmol/L (98-107); Glucose 98 mg/dL (74-99); Non-African American GFR(CKD) >90 (>60 ml/min/1.73 sqM); Sodium 135 mmol/L (137-145)
[2024-01-13] MEDS: ENOXAPARIN 40 MG/0.4 ML SYRINGE SQ SCH (09:47)
[2024-01-13] MEDS: LACTOBACILLUS ACIDOPHILUS/PECT 1 EACH CAPSULE PO SCH (09:47)
[2024-01-13] MEDS: PANTOPRAZOLE 40 MG/10 ML VIAL IVP SCH (09:48)
[2024-01-13 10:30] LABS: C Reactive Protein 2.2 mg/dL (<1.0)
[2024-01-13] MEDS ORDERED: IOPAMIDOL CONTRAST (ORAL USE) VIAL PO PRN (12:46)
--- NOTE | 2024-01-13 12:46 | P.GSCN ---
History of Present Illness Consult date: 01/13/24 Reason for Consult: abdominal pain and bloating History of present illness: this a 38-year-old female who has acute onset of abdominal pain and bloating. Patient states that she went to bed feeling normal. She then awoke and then during the day yesterday developed progressive abdominal pain. Patient states that she is really comfortable in bed currently. She states her pain is a 3 or 4 out of 10. Past Medical History Past Medical History: Asthma, Fibromyalgia, GERD/Reflux Additional Past Medical History / Comment(s): GASTROSCHISIS AT , CONSTIPATION, MULTIPLE SCLEROSIS- STATES SHES "CLUMSY". STATES EYES ARE LIGHT SENSITIVE AND BILATERAL HEARING LOSS, BROKEN NOSE & SINUS CYSTS. , USES MARIJUANA AND YOGA FOR PAIN . History of Any Multi-Drug Resistant Organisms: None Reported Past Surgical History: Adenoidectomy, Section, Tonsillectomy Additional Past Surgical History / Comment(s): GASTROSCHISIS SURGERY, UMBILICAL SURGERY AT 4 YRS OLD. Past Anesthesia/Blood Transfusion Reactions: No Reported Reaction, Family History of Problems w/ Anesthesia Additional Past Anesthesia/Blood Transfusion Reaction / Comm: MOTHER=PONV Past Psychological History: Anxiety, Depression Smoking Status: Never smoker Past Alcohol Use History: Daily Past Drug Use History: Marijuana - Past Family History Mother Family Medical History: Cancer Additional Family Medical History / Comment(s): CLL Medications and Allergies Home Medications Medication Instructions Recorded Confirmed Type Albuterol Inhaler [Ventolin Hfa 2 puff INHALATION RT-QID PRN 05/06/16 01/12/24 History Inhaler] L.acidoph,Paracasei, B.lactis 1 cap PO DAILY 05/06/16 01/12/24 History [Probiotic] Multivitamins, Thera [Multivitamin] 1 tab PO DAILY 05/06/16 01/12/24 History Albuterol Nebulized [Ventolin 2.5 mg INHALATION RT-Q4H PRN 01/12/24 01/12/24 History Nebulized] Montelukast [Singulair] 10 mg PO HS 01/12/24 01/12/24 History Vitamin B-12(Unknown Dose) 1 tab PO DAILY 01/12/24 01/12/24 History Vitamin D3(Unknown Dose) 1 tab PO DAILY 01/12/24 01/12/24 History predniSONE See Taper PO DIRECTED 01/12/24 01/12/24 History Allergies Allergy/AdvReac Type Severity Reaction Status Date / Time erythromycin base AdvReac Unknown Nausea & Verified 01/12/24 14:27 Vomiting Surgical - Exam Vital Signs Temp Pulse Resp BP Pulse Ox 97.8 F 56 L 18 170/80 100 01/12/24 14:24 01/12/24 14:24 01/12/24 14:24 01/12/24 14:24 01/12/24 14:24 - General well developed, well nourished, no distress - Eyes PERRL - ENT normal pinna - Neck no masses - Respiratory normal expansion - Cardiovascular Rhythm: regular - Abdomen mildly tender throughout. There is no rebound or guarding. There is some abdominal distention. Abdomen: soft Results - Labs 01/13/24 07:20 01/13/24 07:20 Abnormal Lab Results - Last 24 Hours (Table) 01/12/24 01/12/24 01/12/24 Range/Units 14:44 14:44 14:44 WBC 19.0 H (3.8-10.6) k/uL Hct 46.1 H (34.0-46.0) % Neutrophils # 16.2 H (1.3-7.7) k/uL Sodium (137-145) mmol/L Chloride 110 H (98-107) mmol/L Carbon Dioxide 16 L (22-30) mmol/L Glucose 132 H (74-99) mg/dL C-Reactive Protein (<1.0) mg/dL Ur Specific [place] >1.050 H (1.001-1.035) Urine Protein Trace H (Negative) Urine Ketones 2+ H (Negative) Urine Blood Trace H (Negative) Ur Squamous Epith Cells 5 H (0-4) /hpf Urine Mucus Few H (None) /hpf 01/13/24 01/13/24 Range/Units 07:20 07:20 WBC 17.5 H (3.8-10.6) k/uL Hct (34.0-46.0) % Neutrophils # (1.3-7.7) k/uL Sodium 135 L (137-145) mmol/L Chloride (98-107) mmol/L Carbon Dioxide 21 L (22-30) mmol/L Glucose (74-99) mg/dL C-Reactive Protein 2.2 H (<1.0) mg/dL Ur Specific [place] (1.001-1.035) Urine Protein (Negative) Urine Ketones (Negative) Urine Blood (Negative) Ur Squamous Epith Cells (0-4) /hpf Urine Mucus (None) /hpf Diabetes panel 01/12/24 01/13/24 Range/Units 14:44 07:20 Sodium 137 135 L (137-145) mmol/L Potassium 3.7 4.0 (3.5-5.1) mmol/L Chloride 110 H 106 (98-107) mmol/L Carbon Dioxide 16 L 21 L (22-30) mmol/L BUN 11 12 (7-17) mg/dL Creatinine 0.58 0.71 (0.52-1.04) mg/dL Glucose 132 H 98 (74-99) mg/dL Calcium 9.4 8.7 (8.4-10.2) mg/dL AST 21 (14-36) U/L ALT 18 (4-34) U/L Alkaline Phosphatase 90 (38-126) U/L Total Protein 7.2 (6.3-8.2) g/dL Albumin 4.7 (3.5-5.0) g/dL Calcium panel 01/12/24 01/13/24 Range/Units 14:44 07:20 Calcium 9.4 8.7 (8.4-10.2) mg/dL Albumin 4.7 (3.5-5.0) g/dL Pituitary panel 01/12/24 01/13/24 Range/Units 14:44 07:20 Sodium 137 135 L (137-145) mmol/L Potassium 3.7 4.0 (3.5-5.1) mmol/L Chloride 110 H 106 (98-107) mmol/L Carbon Dioxide 16 L 21 L (22-30) mmol/L BUN 11 12 (7-17) mg/dL Creatinine 0.58 0.71 (0.52-1.04) mg/dL Glucose 132 H 98 (74-99) mg/dL Calcium 9.4 8.7 (8.4-10.2) mg/dL Adrenal panel 01/12/24 01/13/24 Range/Units 14:44 07:20 Sodium 137 135 L (137-145) mmol/L Potassium 3.7 4.0 (3.5-5.1) mmol/L Chloride 110 H 106 (98-107) mmol/L Carbon Dioxide 16 L 21 L (22-30) mmol/L BUN 11 12 (7-17) mg/dL Creatinine 0.58 0.71 (0.52-1.04) mg/dL Glucose 132 H 98 (74-99) mg/dL Calcium 9.4 8.7 (8.4-10.2) mg/dL Total Bilirubin 1.3 (0.2-1.3) mg/dL AST 21 (14-36) U/L ALT 18 (4-34) U/L Alkaline Phosphatase 90 (38-126) U/L Total Protein 7.2 (6.3-8.2) g/dL Albumin 4.7 (3.5-5.0) g/dL - Imaging CT scan - abdomen: report reviewed Assessment and Plan Assessment: possible colitis/gastritis. Patient's CAT scan is really nondiagnostic. There is no oral or IV contrast given. Patient lives repeat CAT scan performed with oral and IV contrast.
[2024-01-13] MEDS: IOPAMIDOL CONTRAST (ORAL USE) VIAL PO PRN (14:10)
[2024-01-13] MEDS: SODIUM CHLORIDE 0.9% 1,000 ML IV SCH (14:16)
--- NOTE | 2024-01-13 16:16 | CT ---
EXAMINATION TYPE: CT abdomen pelvis w con DATE OF EXAM: 01/13/2024 COMPARISON: 01/12/2024 HISTORY: f/u for possible malignancy CT DLP: 414.4 mGycm Automated exposure control for dose reduction was used. TECHNIQUE: Helical acquisition of images was performed from the lung bases through the pelvis. CONTRAST: Performed with Oral Contrast and with IV Contrast, patient injected with 100 mL of Isovue 300. The lung bases are clear. The gallbladder is normal without distention, wall thickening, pericholecystic fluid or gallstones. T here is no biliary ductal dilatation. There is no focal mass or organomegaly involving the liver, pancreas, spleen or adrenal glands. There is no solid renal mass or hydronephrosis and there is homogeneous contrast enhancement of the r enal parenchyma. The caliber the abdominal aorta is normal is no retroperitoneal adenopathy or hemorr susanne. The bowel loops are normal in caliber and there is no evidence of dilatation or obstruction. No infla mmatory changes are identified in the bowel wall or mesentery. There is a moderate to large amount of ascites which has increased in the interval since the prior st udy. There is a 4 cm well-circumscribed mass in the right hemipelvis with the fluid density which lik armin represents a right adnexal cystic mass. Given the presence of ascites, neoplasm is not excluded. There is no pelvic adenopathy The osseous structures and soft tissues are intact. IMPRESSION: 1. Moderate to marked ascites which has increased in the interval. 2. Prominent right adnexal cystic-appearing mass. Given the presence of ascites, neoplasm not exclude d. MRI of the pelvis would be useful for further evaluation.
[2024-01-13 19:23] LABS: Erythrocyte Sedimentation Rate 6 mm/Hr (0-20)
[2024-01-13] MEDS: MONTELUKAST 10 MG TAB PO SCH (20:21)
--- NOTE | 2024-01-14 10:07 | US ---
EXAMINATION TYPE: US pelvic complete DATE OF EXAM: 01/14/2024 COMPARISON: CT 01/13/2024 CLINICAL INDICATION: Female, 38 years old with history of right adnexal malignancy?; Abnormal CT TECHNIQUE: Transabdominal (TA). Transabdominal sonographic images of the pelvis were acquired. Date of LMP: Pt states 5-6 weeks ago EXAM MEASUREMENTS: Uterus: 9.1 x 4.7 x 6.4 cm Endometrial Stripe: 0.8 cm Right Ovary: 4.7 x 4.5 x 3.0 cm Left Ovary: 4.2 x 3.1 x 3.0 cm 1. Uterus: Anteverted wnl, Nabothian cyst in cervix= 0.9 cm 2. Endometrium: wnl 3. Right Ovary: Simple appearing cyst= 4.1 x 2.1 x 3.4 cm 4. Left Ovary: Complicated cyst= 3.0 x 3.0 x 3.0 cm, a second, exophytic cystic lesion= 3.1 x 2.3 x 2.6 cm 5. Bilateral Adnexa: Ascites present as visualized on CT 6. Posterior cul-de-sac: Ascites present as visualized on CT IMPRESSION: 1. Complex cyst left ovary 2. More simple appearing cyst bilateral ovaries. 3. Free fluid within the pelvis. This could be related to ascites identified by CT 3
--- NOTE | 2024-01-14 10:24 | P.CONS ---
History of Present Illness - Reason for Consult Consult date: 01/14/24 concern for possible metastatic cancer Requesting physician: Blake Diaz - Chief Complaint Abdominal pain - History of Present Illness Ms. Augustine is a very pleasant 38 yo female with history of multiple comorbidities including MS however this is controlled with smoking marijuana and exercise (had presented initially with severe low back pain and excessive fatig ue) who is here for acute onset severe abdominal pain. Due to the severity of her pain she was nauseous however no vomiting or diarrhea. No change in bowel habits recently. She presented to the ER where workup including CT of the abdomen pelvis read revealed possible bowel inflammation/colitis, ascites, and changes in the omentum, nonspecific. She was admitted for intractable pain control. UA was negative, WBC was slightly high at 19, hemoglobin 15.7 and platelets normal at 374. ESR was negative and CRP was 2.2 with negative coags. She did have CT of the abdomen pelvis with IV and p.o. contrast which revealed moderate to marked ascites as well as a prominent adnexal cystic appearing mass. She does describe initially her pain as being diffuse however more recently, she localizes her pain and tenderness more to the left lower quadrant. Pelvic ultrasound was done earlier today, await results. Patient denies any known family history of malignancy other than CLL and her mother around age 40s, and AML in her grandmother when she was elderly. No other known family history of malignancy. Prior to that she was very active and exercising every day. Past Medical History Past Medical History: Asthma, Fibromyalgia, GERD/Reflux Additional Past Medical History / Comment(s): GASTROSCHISIS AT , CONSTIPATION, MULTIPLE SCLEROSIS- STATES SHES "CLUMSY". STATES EYES ARE LIGHT SENSITIVE AND BILATERAL HEARING LOSS, BROKEN NOSE & SINUS CYSTS. , USES MARIJUANA AND YOGA FOR PAIN . History of Any Multi-Drug Resistant Organisms: None Reported Past Surgical History: Adenoidectomy, Section, Tonsillectomy Additional Past Surgical History / Comment(s): GASTROSCHISIS SURGERY, UMBILICAL SURGERY AT 4 YRS OLD. Past Anesthesia/Blood Transfusion Reactions: No Reported Reaction, Family History of Problems w/ Anesthesia Additional Past Anesthesia/Blood Transfusion Reaction / Comm: MOTHER=PONV Past Psychological History: Anxiety, Depression Smoking Status: Never smoker Past Alcohol Use History: Daily Past Drug Use History: Marijuana - Past Family History Mother Family Medical History: Cancer Additional Family Medical History / Comment(s): CLL Medications and Allergies Home Medications Medication Instructions Recorded Confirmed Type Albuterol Inhaler [Ventolin Hfa 2 puff INHALATION RT-QID PRN 05/06/16 01/12/24 History Inhaler] L.acidoph,Paracasei, B.lactis 1 cap PO DAILY 05/06/16 01/12/24 History [Probiotic] Multivitamins, Thera [Multivitamin] 1 tab PO DAILY 05/06/16 01/12/24 History Albuterol Nebulized [Ventolin 2.5 mg INHALATION RT-Q4H PRN 01/12/24 01/12/24 History Nebulized] Montelukast [Singulair] 10 mg PO HS 01/12/24 01/12/24 History Vitamin B-12(Unknown Dose) 1 tab PO DAILY 01/12/24 01/12/24 History Vitamin D3(Unknown Dose) 1 tab PO DAILY 01/12/24 01/12/24 History predniSONE See Taper PO DIRECTED 01/12/24 01/12/24 History Allergies Allergy/AdvReac Type Severity Reaction Status Date / Time erythromycin base AdvReac Unknown Nausea & Verified 01/12/24 14:27 Vomiting Physical Exam Vitals: Vital Signs Temp Pulse Resp BP Pulse Ox 01/14/24 07:25 97.8 F 73 17 121/65 96 01/14/24 01:15 98.2 F 96 16 119/84 96 01/13/24 20:10 16 01/13/24 19:20 98.4 F 90 16 109/74 97 01/13/24 12:25 98.5 F 74 17 149/98 99 Intake and Output 01/13/24 01/14/24 01/14/24 22:59 06:59 14:59 Intake Total 1700 Balance 1700 Intake: Intake, IV Titration 1200 Amount Sodium Chloride 0.9% 1, 1200 000 ml @ 100 mls/hr IV . Q10H [facility] Rx#:[id number] Oral 500 Other: Voiding Method Toilet # Voids 3 Patient no acute distress. She does have soft abdomen with tenderness to palpation in the left lower quadrant without any guarding or rigidity, and minimal rebound. Otherwise no conjunctival pallor or scleral icterus or jaundice. Alert and oriented x 3. No respiratory distress. Results CBC & Chem 7: 01/13/24 07:20 01/13/24 07:20 Labs: Abnormal Lab Results - Last 24 Hours (Table) 01/13/24 Range/Units 07:20 Sodium 135 L (137-145) mmol/L Carbon Dioxide 21 L (22-30) mmol/L C-Reactive Protein 2.2 H (<1.0) mg/dL CT scan - abdomen: report reviewed Assessment and Plan Assessment: 1. Intractable pain 2. Adnexal cystic mass 3. New onset ascites 4. Reactive leukocytosis Plan: Ms. Augustine is a very pleasant 38-year-old female overall no significant past medical history other than MS that is very well-controlled off of medication who is here for acute onset intractable abdominal pain, workup with adnexal cystic appearing mass with new onset moderate to marked ascites. On exam she has significant tenderness in her left lower quadrant of the abdomen, otherwise her abdomen is soft without obvious signs of ascites clinically. -Adnexal lesion seen on CT, await pelvic ultrasound that was done earlier today -Unclear if this is malignant in nature versus benign ovarian cyst -Due to new ascites, she might benefit from diagnostic paracentesis with cytology -Based on pelvic ultrasound if there is continued concern for malignancy, she will need to be evaluated by gynecology oncology -She does complain of constipation, likely due to pain medication she is on. This started after she presented to the ER and was having regular bowel movements prior to admission. Further recommendations based on initial workup. Discussed with patient she is agreeable to plan. All of her questions were answered.
[2024-01-14] MEDS: HYDROmorphone 1 MG/ML 1 ML SYRINGE IVP PRN (13:27)
[2024-01-14] MEDS: polyethylene glycoL 3350 17 GM POWD.PACK PO PRN (13:28)
--- NOTE | 2024-01-14 14:42 | P.PN ---
Subjective Progress Note Date: 01/14/24 Hospital course: Patient is a very pleasant 38-year-old female with a past medical history of c ongenital gastroschisis status postrepair at , multiple sclerosis, asthma, GERD, and fibromyalgia. She presented to the emergency department with a chief complaint of abdominal pain and bloating. Upon arrival to our facility, patient underwent evaluation. Vital signs upon arrival show blood pressure 170/80, heart rate 56, respiratory rate 18, temp 97.8 F, and SpO2 100% on room air. Labs were completed and reviewed. CBC showing leukocytosis with WBC count of 19.0. Coagulation profile normal findings. BMP revealing non-anion gap metabolic acidosis with chloride of 110, bicarb 16, and anion gap of 11. Blood glucose was 132. Lactic acid was 1.3. Liver profile unremarkable. Amylase and lipase were normal findings. Urinalysis positive for protein, ketones, and trace blood negative for infection. Urine hCG negative. KUB showing dilated loops of bowel in upper abdomen. CT abdomen and pelvis showing acute process identified in the abdomen and pelvis appearing to be associated with large bowel and a severe colitis versus differential metastasis should be ruled out. Repeat CT abdomen pelvis with contrast showed moderate to marked ascites, prominent right adnexal cystic appearing mass. Pelvic ultrasound showed complex cyst left ovary, more simple appearing cyst bilateral ovaries. Gynecology also consulted. Patient seen and examined at bedside. Still continues to have abdominal pain. Physical exam: Vital signs reviewed and stable. General: Nontoxic, no distress and appears stated age. Derm: Skin warm and dry, normal coloration for ethnicity. Head: Atraumatic, normocephalic and symmetric. Eyes: EOMs intact, no lid lag, and anicteric sclera Mouth: no lip lesions, mucus membranes moist Cardiovascular: regular rate and rhythm with normal S1S2, no murmur, positive posterior tibial pulses bilaterally, and cap refill < 2 seconds. Lungs: Respirations even, regular, and unlabored on room air. Lungs CTA bilaterally, no rhonchi, no rales, no wheezing, and no accessory muscle usage. Abdominal: soft, diffuse tenderness upon palpation, no guarding, no appreciable organomegaly Ext: ROM intact. No gross muscle atrophy, no edema, no contractures Neuro: Speech clear, face symmetrical and CN II-XII grossly intact with no noted focal neuro deficits Psych: Alert and oriented to person, place, time, and situation. Appropriate and pleasant affect. Assessment and Plan of Care: Intractable abdominal pain, rule out severe colitis versus metastatic process Left adnexal complex cyst Leukocytosis History of congenital gastroschisis status postrepair at Multiple sclerosis GERD -Oncology note reviewed, patient will likely need diagnostic paracentesis Gynecology also consulted, patient will likely need diagnostic CEA, CA125 pending -Continue symptomatic care and pain management. Zofran 4 mg IVP every 4 hours as needed for nausea and/or vomiting. Morphine 4 mg IVP as needed for pain. Also started on Dilaudid 1 IV every 4 hours as needed for breakthrough pain -Clear liquid diet MiraLAX daily, also started on senna twice daily -Gentle IV fluid hydration with 0.9% normal saline at 100 cc/h. -General surgery also following -Patient placed on GI prophylaxis with Protonix 40 mg IVP daily -Patient started on Lovenox 40 mg subcu daily for DVT prophylaxis. Asthma, not in acute exacerbation -Continue Singulair 10 mg nightly and Ventolin nebulizer treatments every 4 hours as needed for shortness of breath and/or wheezing. Data and imaging reviewed: CBC and BMP pending, will be reviewed when available CODE STATUS: Full code DVT prophylaxis: Lovenox Anticipated discharge date: Clinical course to determine Anticipated discharge place: Home Objective - Vital Signs Vital signs: Vital Signs Temp 98.8 F 01/14/24 13:40 Pulse 77 01/14/24 13:40 Resp 15 01/14/24 13:40 BP 146/82 01/14/24 13:40 Pulse Ox 98 01/14/24 13:40 FiO2 Intake & Output 01/13/24 01/14/24 01/14/24 18:59 06:59 18:59 Intake Total 1700 Balance 1700 Intake: Intake, IV Titration 1200 Amount Sodium Chloride 0.9% 1, 1200 000 ml @ 100 mls/hr IV . Q10H [facility] Rx#:[id number] Oral 500 Other: Voiding Method Toilet Toilet # Voids 2 3 - Labs CBC & Chem 7: 01/13/24 07:20 01/13/24 07:20
[2024-01-14 16:53] LABS: Basophils # (A) 0.1 k/uL (0-0.2); Basophils % (A) 1 %; Eosinophils # (A) 0.2 k/uL (0-0.7); Eosinophils % (A) 2 %; HCT 37.2 % (34.0-46.0); HGB 12.5 gm/dL (11.4-16.0); Lymphocytes # (A) 1.6 k/uL (1.0-4.8); Lymphocytes % (A) 15 %; MCH 32.4 pg (25.0-35.0); MCHC 33.6 g/dL (31.0-37.0); MCV 96.5 fL (80.0-100.0); Mean Platelet Volume 6.9; Monocytes # (A) 0.5 k/uL (0-1.0); Monocytes % (A) 4 %; Neutrophils # (A) 8.1 k/uL (1.3-7.7); Neutrophils % (A) 77 %; Platelet Count 248 k/uL (150-450); RBC 3.85 m/uL (3.80-5.40); RDW 12.4 % (11.5-15.5); WBC 10.5 k/uL (3.8-10.6)
[2024-01-14 17:00] LABS: African American GFR (CKD) >90 (>60 ml/min/1.73 sqM); Anion Gap 4 mmol/L; Blood Urea Nitrogen 5 mg/dL (7-17); Carbon Dioxide 24 mmol/L (22-30); Chloride 109 mmol/L (98-107); Glucose 91 mg/dL (74-99); Non-African American GFR(CKD) >90 (>60 ml/min/1.73 sqM); Potassium 3.7 mmol/L (3.5-5.1); Sodium 137 mmol/L (137-145)
[2024-01-14] MEDS: SENNOSIDES 8.6 MG TAB PO SCH (21:07)
[2024-01-15 06:29] LABS: Basophils # (A) 0.1 k/uL (0-0.2); Basophils % (A) 1 %; Eosinophils # (A) 0.5 k/uL (0-0.7); Eosinophils % (A) 6 %; Lymphocytes # (A) 2.6 k/uL (1.0-4.8); Lymphocytes % (A) 28 %; MCH 31.2 pg (25.0-35.0); MCHC 32.3 g/dL (31.0-37.0); MCV 96.5 fL (80.0-100.0); Mean Platelet Volume 6.9; Monocytes # (A) 0.6 k/uL (0-1.0); Monocytes % (A) 6 %; Neutrophils # (A) 5.2 k/uL (1.3-7.7); Neutrophils % (A) 58 %; Platelet Count 246 k/uL (150-450); RBC 3.83 m/uL (3.80-5.40); RDW 12.4 % (11.5-15.5); WBC 9.1 k/uL (3.8-10.6)
[2024-01-15 06:41] LABS: African American GFR (CKD) >90 (>60 ml/min/1.73 sqM); Anion Gap 3 mmol/L; Blood Urea Nitrogen 4 mg/dL (7-17); Calcium 7.9 mg/dL (8.4-10.2); Carbon Dioxide 23 mmol/L (22-30); Chloride 110 mmol/L (98-107); Glucose 73 mg/dL (74-99); Non-African American GFR(CKD) >90 (>60 ml/min/1.73 sqM); Potassium 3.7 mmol/L (3.5-5.1); Sodium 136 mmol/L (137-145)
[2024-01-15 08:22] VITALS: RESP 18
--- NOTE | 2024-01-15 09:50 | P.PN ---
Subjective Progress Note Date: 01/15/24 the patient was in the shower. Patient states she has no new complaints. Her computed tomography scan reviewed. There is no general surgery plans. Patient will be followed by gynecology. Objective - Vital Signs Vital signs: Vital Signs Temp 98.2 F 01/15/24 07:32 Pulse 85 01/15/24 07:32 Resp 18 01/15/24 07:32 BP 114/65 01/15/24 07:32 Pulse Ox 97 01/15/24 07:32 FiO2 Intake & Output 01/14/24 01/15/24 01/15/24 18:59 06:59 18:59 Other: Voiding Method Toilet # Voids 5 1 - Labs CBC & Chem 7: 01/15/24 06:11 01/15/24 06:11 Labs: Abnormal Lab Results - Last 24 Hours (Table) 01/14/24 01/14/24 01/15/24 Range/Units 16:32 16:32 06:11 Neutrophils # 8.1 H (1.3-7.7) k/uL Sodium 136 L (137-145) mmol/L Chloride 109 H 110 H (98-107) mmol/L BUN 5 L 4 L (7-17) mg/dL Creatinine 0.51 L 0.51 L (0.52-1.04) mg/dL Glucose 73 L (74-99) mg/dL Calcium 8.0 L 7.9 L (8.4-10.2) mg/dL Microbiology - Last 24 Hours (Table) 01/13/24 10:02 Blood Culture - Preliminary Blood 01/13/24 10:02 Blood Culture - Preliminary Blood
--- NOTE | 2024-01-15 10:22 | P.HPOB ---
History of Present Illness H&P Date: 01/15/24 Chief Complaint: Abdominal pain and pelvic mass This is a 38 year old 2 para 2 woman LMP 01/15/2024 who presented to the emergency room with severe abdominal pain on 01/12/24. 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 She had not had an episode of this pain previously. She describes the pain as generalized abdominal and severe. She presented to the emergency room at which time she had a CT of the abdomen and pelvis. With oral and IV contrast there There is found to be a 4 cm right hemipelvis mass and ascites. There is no evidence of bowel obstruction or lymphadenopathy. Ultrasound shows uterus measuring 9.1 x 4.7 x 6.4 cm with normal endometrial stripe. There is a simple right ovarian cyst measuring 4 x 2 x 3.4 cm. There is a left complicated ovarian cyst measuring 3 x 3 x 3 cm with a second exophytic cystic lesion measuring 3.1 x 2.3 x 2.6 cm. There is fluid in the cul-de-sac and ascites consistent with findings on computed tomography scan. CA 125 level Is normal at 13.0, CEA normal at 2.4. Patient reports an uncomplicated gynecologic history. She has regular monthly menses every 28 days however this cycle was prolonged at 40 days, Which is unusual for her. She did begin her period yesterday. She has no breakthrough bleeding in her typical cycles. She has normal bowel and bladder habits with no blood in the stool or urine or dark tarry stools. She is a smoker however margret anderson leads a healthy lifestyle with diet and exercise. She states her last Pap smear was 2 years ago and was normal. She had an abnormal Pap smear in her 20s with HPV but follow-up was negative. She has a tubal ligation and denies pain or problems with intercourse. Obstetric history significant for term sections in 2008 and 2018. 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 She also had section 2, second one with tubal ligation. Upon evaluation today she reports her pain is significantly improved. She is tearful and anxious. She reports her appetite is normal and she has had no recent weight gain or weight loss. Bowel movements are normal But she feels bloated. Review of Systems Constitutional: Denies chills, Denies fever, Denies weight gain, Denies weight loss Breasts: absent: masses Cardiovascular: Denies chest pain, Denies high blood pressure, Denies irregular heart beat, Denies rapid heart beat, Denies shortness of breath Respiratory: Denies cough Gastrointestinal: Reports abdominal pain, Reports bloating, Reports excessive gas, Denies BRBPR, Denies constipation, Denies diarrhea, Denies jaundice, Denies loss of appetite, Denies melena, Denies nausea, Denies vomiting Genitourinary: Denies dysmenorrhea, Denies dyspareunia, Denies dysuria, Denies flank pain, Denies genital sores, Denies hematuria, Denies menorrhagia, Denies vaginal discharge, Denies vaginal dryness Menstruation: Reports as per HPI, Reports currently menstrual Musculoskeletal: Reports low back pain Integumentary: Denies rash Neurological: Denies headaches, Denies syncope Hematologic/Lymphatic: Denies easy bleeding, Denies easy bruising Past Medical History Past Medical History: Asthma, Fibromyalgia, GERD/Reflux Additional Past Medical History / Comment(s): GASTROSCHISIS AT , CONSTIPATION, MULTIPLE SCLEROSIS- STATES SHES "CLUMSY". STATES EYES ARE LIGHT SENSITIVE AND BILATERAL HEARING LOSS, BROKEN NOSE & SINUS CYSTS. , USES MARIJUANA AND YOGA FOR PAIN . History of Any Multi-Drug Resistant Organisms: None Reported Past Surgical History: Adenoidectomy, Section, Tonsillectomy Additional Past Surgical History / Comment(s): GASTROSCHISIS SURGERY, UMBILICAL SURGERY AT 4 YRS OLD. Past Anesthesia/Blood Transfusion Reactions: No Reported Reaction, Family History of Problems w/ Anesthesia Additional Past Anesthesia/Blood Transfusion Reaction / Comment(s): MOTHER=PONV Past Psychological History: Anxiety, Depression Smoking Status: Never smoker Past Alcohol Use History: Daily Past Drug Use History: Marijuana - Past Family History Mother Family Medical History: Cancer Additional Family Medical History / Comment(s): CLL Medications and Allergies Home Medications Medication Instructions Recorded Confirmed Type Albuterol Inhaler [Ventolin Hfa 2 puff INHALATION RT-QID PRN 05/06/16 01/12/24 History Inhaler] L.acidoph,Paracasei, B.lactis 1 cap PO DAILY 05/06/16 01/12/24 History [Probiotic] Multivitamins, Thera [Multivitamin] 1 tab PO DAILY 05/06/16 01/12/24 History Albuterol Nebulized [Ventolin 2.5 mg INHALATION RT-Q4H PRN 01/12/24 01/12/24 History Nebulized] Montelukast [Singulair] 10 mg PO HS 01/12/24 01/12/24 History Vitamin B-12(Unknown Dose) 1 tab PO DAILY 01/12/24 01/12/24 History Vitamin D3(Unknown Dose) 1 tab PO DAILY 01/12/24 01/12/24 History predniSONE See Taper PO DIRECTED 01/12/24 01/12/24 History Allergies Allergy/AdvReac Type Severity Reaction Status Date / Time erythromycin base AdvReac Unknown Nausea & Verified 01/12/24 14:27 Vomiting Exam Vital Signs Temp Pulse Resp BP Pulse Ox 01/15/24 07:32 98.2 F 85 18 114/65 97 01/15/24 01:59 98.4 F 82 16 103/57 98 01/14/24 20:10 15 01/14/24 19:28 98.4 F 77 15 144/77 97 01/14/24 13:40 98.8 F 77 15 146/82 98 Intake and Output 01/14/24 01/15/24 01/15/24 22:59 06:59 14:59 Other: Voiding Method Toilet # Voids 5 1 This is a tearful but otherwise pleasant female in no acute distress. HEENT exam is unremarkable. Her breathing is on labored. Her abdomen is soft, Not distended, with generalized tenderness in all 4 quadrants. There is no rebound or guarding. There is mild bilateral flank pain. Pelvic examination is deferred per patient request as she is on her period. Neurologically grossly intact. Mood and affect normal. Results Result Diagrams: 01/15/24 06:11 01/15/24 06:11 Abnormal Lab Results - Last 24 Hours (Table) 01/14/24 01/14/24 01/15/24 Range/Units 16:32 16:32 06:11 Neutrophils # 8.1 H (1.3-7.7) k/uL Sodium 136 L (137-145) mmol/L Chloride 109 H 110 H (98-107) mmol/L BUN 5 L 4 L (7-17) mg/dL Creatinine 0.51 L 0.51 L (0.52-1.04) mg/dL Glucose 73 L (74-99) mg/dL Calcium 8.0 L 7.9 L (8.4-10.2) mg/dL Microbiology - Last 24 Hours (Table) 01/13/24 10:02 Blood Culture - Preliminary Blood 01/13/24 10:02 Blood Culture - Preliminary Blood CT scan - abdomen: image reviewed CT scan - pelvis: image reviewed US - abdomen: image reviewed Assessment and Plan (1) Pelvic mass Current Visit: Yes Status: Acute Code(s): R19.00 - INTRA-ABD AND PELVIC SWELLING, MASS AND LUMP, UNSP SITE SNOMED Code(s): 85767709 (2) Ascites Current Visit: Yes Status: Acute Code(s): R18.8 - OTHER ASCITES SNOMED Code(s): 515810639 (3) Intractable abdominal pain Current Visit: Yes Status: Acute Code(s): R10.9 - UNSPECIFIED ABDOMINAL PAIN SNOMED Code(s): 02988722 Plan: This is a 38-year-old 2 para 2 woman admitted with severe abdominal pain, now improving. She has findings of a left complex exophytic adnexal mass and ascites. I recommend referral to GEOPHYSICAL DATA TECHNICIAN oncology with probable surgical d iagnosis. Her CEA 125 and CEA levels are normal. Other etiologies for her ascites and pain may be abdominal scarring with loculation secondary to history of gastroschisis and multiple abdominal surgeries however malignancy should be ruled out. We will arrange for referral to GEOPHYSICAL DATA TECHNICIAN oncology as an outpatient following discharge. All questions were answered and she is cmfortable with the plan for follow-up. Thank you for allowing me to be involved in the care of this kind patient. Time with Patient: Greater than 30 (45 minutes)
--- NOTE | 2024-01-15 11:04 | P.DS ---
Providers Date of admission: 01/12/24 18:05 Expected date of discharge: 01/15/24 Attending physician: Blake Diaz MD Consults: 01/13/24 08:32 Consult Physician Routine Consulting Provider: Arturo Padilla Consult Reason/Comments: Severe colitis vs metastatic process Do you want consulting provider notified?: Yes 01/13/24 17:37 Consult Physician Routine Consulting Provider: Oleg Jiménez Consult Reason/Comments: concerns of pelvic mass/ovarian cancer Do you want consulting provider notified?: Yes 01/13/24 17:39 Consult Physician Routine Consulting Provider: Sang Drummond Consult Reason/Comments: concerns of ovarian cancer/pelvic mass, intractable pain Do you want consulting provider notified?: Yes Primary care physician: Jeremiah Benites [facility] Course: Discharge Diagnosis: Intractable abdominal pain, possible metastatic process Left adnexal complex cyst Leukocytosis History of congenital gastroschisis status postrepair at Multiple sclerosis GERD Hospital Course: Patient is a very pleasant 38-year-old female with a past medical history of congenital gastroschisis status postrepair at , multiple sclerosis, asthma, GERD, and fibromyalgia. She presented to the emergency department with a chief complaint of abdominal pain and bloating. Upon arrival to our facility, patient underwent evaluation. Vital signs upon arrival show blood pressure 170/80, heart rate 56, respiratory rate 18, temp 97.8 F, and SpO2 100% on room air. Labs were completed and reviewed. CBC showing leukocytosis with WBC count of 19.0. Coagulation profile normal findings. BMP revealing non-anion gap metabolic acidosis with chloride of 110, bicarb 16, and anion gap of 11. Blood glucose was 132. Lactic acid was 1.3. Liver profile unremarkable. Amylase and lipase were normal findings. Urinalysis positive for protein, ketones, and trace blood negative for infection. Urine hCG negative. KUB showing dilated loops of bowel in upper abdomen. CT abdomen and pelvis showing acute process identified in the abdomen and pelvis appearing to be associated with large bowel and a severe colitis versus differential metastasis should be ruled out. Repeat CT abdomen pelvis with contrast showed moderate to marked ascites, prominent right adnexal cystic appearing mass. Pelvic ultrasound showed complex cyst left ovary, more simple appearing cyst bilateral ovaries. General surgery was initially consulted. Recommending no surgical interventions. Oncology also consulted.gynecology as outpatient, recommended outpatient gynecology/oncology. CEA and CA125 antigen within normal limits. Abdominal pain improved at the time of discharge. Patient to get a referral for gynecology/oncology from waist presser. Patient seen and examined at bedside. Vital signs reviewed and stable. General: Nontoxic, no distress, appears at stated age Derm: Warm, dry Head: Atraumatic, normocephalic, symmetric Eyes: EOMI, no lid lag, anicteric sclera Mouth: No lip lesion, mucus membranes moist Cardiovascular: S1S2 reg, no murmur Lungs: CTA bilateral, no rhonchi, no rales, no accessory muscle use Abdominal: Soft, nontender to palpation, no guarding, no appreciable organomegaly Ext: No gross muscle atrophy, no edema, no contractures Neuro: CN II-XI grossly intact, no focal neuro deficits Psych: Alert, oriented, appropriate affect A total of 33 minutes of time were spent preparing this complex discharge summary. Patient was discharged on 01/15/2024 at 1047. Patient Condition at Discharge: Stable Plan - Discharge Summary Discharge Rx Participant: No New Discharge Prescriptions: New HYDROcodone/APAP 5-325MG [[place] 5-325] 1 tab PO Q4HR PRN 3 Days #18 tab PRN Reason: Severe Breakthrough Pain Sennosides [Senokot] 8.6 mg PO BID PRN #30 tab PRN Reason: Constipation Continue Multivitamins, Thera [Multivitamin (formulary)] 1 tab PO DAILY L.acidoph,Paracasei, B.lactis [Probiotic] 1 cap PO DAILY Albuterol Inhaler [Ventolin Hfa Inhaler] 2 puff INHALATION RT-QID PRN PRN Reason: Shortness Of Breath Albuterol Nebulized [Ventolin Nebulized] 2.5 mg INHALATION RT-Q4H PRN PRN Reason: Shortness Of Breath Vitamin D3(Unknown Dose) 1 tab PO DAILY Montelukast [Singulair] 10 mg PO HS Vitamin B-12(Unknown Dose) 1 tab PO DAILY Discontinued predniSONE See Taper PO DIRECTED Discharge Medication List Albuterol Inhaler [Ventolin Hfa Inhaler] 2 puff INHALATION RT-QID PRN 05/06/16 [History] L.acidoph,Paracasei, B.lactis [Probiotic] 1 cap PO DAILY 05/06/16 [History] Multivitamins, Thera [Multivitamin (formulary)] 1 tab PO DAILY 05/06/16 [History] Albuterol Nebulized [Ventolin Nebulized] 2.5 mg INHALATION RT-Q4H PRN 01/12/24 [History] Montelukast [Singulair] 10 mg PO HS 01/12/24 [History] Vitamin B-12(Unknown Dose) 1 tab PO DAILY 01/12/24 [History] Vitamin D3(Unknown Dose) 1 tab PO DAILY 01/12/24 [History] HYDROcodone/APAP 5-325MG [[place] 5-325] 1 tab PO Q4HR PRN 3 Days #18 tab 01/15/24 [Rx] Sennosides [Senokot] 8.6 mg PO BID PRN #30 tab 01/15/24 [Rx] Follow up Appointment(s)/Referral(s): Jeremiah Benites DO [Primary Care Provider] - 1-2 days Patient Instructions/Handouts: Abdominal Pain (GEN) Activity/Diet/Wound Care/Special Instructions: Please see sales support administrator/onc for further diagnosis and treatment. Referral to be made by Infection Control Nurse. Discharge Disposition: HOME SELF-CARE
[2024-01-15 13:04] VITALS: BP 128/87; PULSE 73; TEMP 98.4
== END 2024-01-15 15:53 | disposition home or self-care (01) ==
LOC: EC 14:12 → 5NMEDONC 18:05
PROVIDERS: ADMIT Student in an Organized Health Care Education/Training Program; ATTEND Student in an Organized Health Care Education/Training Program
DX: R10.9 Unspecified abdominal pain (principal); R18.8 Other ascites; D72.829 Elevated white blood cell count, unspecified; J45.909 Unspecified asthma, uncomplicated; K21.9 Gastro-esophageal reflux disease without esophagitis; G35 Multiple sclerosis; F32.A Depression, unspecified; F41.9 Anxiety disorder, unspecified; Z87.761 Personal history of (corrected) gastroschisis; Z79.899 Other long term (current) drug therapy; Z88.1 Allergy status to other antibiotic agents
CPT/HCPCS: 96376 ×4; 96361 ×3; 96372 ×3; 96375 ×2; 96374; 99285; 36415; 93005; 80053; 80048 ×3; 86304; 85652; 82378; 82150; 83605; 83690; 85025 ×3; 85027; 85610; 85730; 86140; 81001; 81025; 87040; 74018; 76856; 74177 ×2; G0378 ×4; J2270 ×4; J2405 ×4; J1650 ×3; J1170 ×3; C9113 ×3; Q9967 ×2

== ENCOUNTER → 2024-01-18 | Outpatient (CLI) | payer MEDICARE, OTHER ==
--- NOTE | 2024-01-21 12:31 | MR ---
EXAMINATION TYPE: MR abdomen wo/w con DATE OF EXAM: 01/18/2024 6:42 AM CLINICAL INDICATION:Female, 38 years old with history of N83.202 N83.201 R10.9 Z87.761; PHH, Lower ab dominal/pelvic pain, pressure. COMPARISON: 01/13/2024. TECHNIQUE: Multiplanar multi-sequence imaging was performed without contrast. Post contrast imaging was performed. Post IV contrast subtraction images were also submitted for review. IV Contrast: 5.5 cc Gadavist FINDINGS: LOWER CHEST: No gross irregularity. ABDOMEN Liver: No evidence for hepatic steatosis or cirrhosis. Signal dropout on chemical shift in phase imag ing. Gallbladder and Bile ducts: No evidence for ductal dilation, or biliary stricture or evidence of chol edocholithiasis. The gallbladder is within normal limits. Pancreas: No ductal dilation. No evidence for solid mass. Spleen: Normal for size. Adrenal glands: Unremarkable. Kidneys: No evidence for obstructive uropathy. No suspicious renal masses. Stomach and Bowel: No evidence for bowel wall thickening or evidence for obstruction. Retroperitoneum/Peritoneum: No evidence of pneumoperitoneum. Small amount of free fluid seen on prio r's not well appreciated. Vasculature: No aortic aneurysm. Filling defect within the portal venous branch with high T1 signal s eries 801 image 79 and noncontrast enhancement on postcontrast imaging series 901 image 391 predomina ntly in segment 8. Additional filling defect thought to be more inferiorly a smaller branch series 9 on image 274 with abnormal enhancement within this region as well in segment 6. Findings compatible w ith thrombus. Musculoskeletal: The osseous structures appear intact. Lymph Nodes: No gross evidence for lymphadenopathy. Abdominal wall: Unremarkable. Pelvis: Arcuate versus septate morphology to the uterine fundus. Uterus appears retroverted. Left adn exal cyst measuring up to 28 mm. IMPRESSION: 1. Portal vein thrombi identified the largest within the distal right portal vein segment 8 and exte nding into small branches and another more inferiorly in segment 6. 2. Arcuate versus septate morphology to the uterus with retroverted positioning suggested. Correlate for this being a possible etiology of patient's symptoms. 3. Mild Iron deposition in the liver and spleen.
== END | disposition home or self-care (01) ==
LOC: RADMRIMAIN 05:35
PROVIDERS: ATTEND Family Medicine
DX: N83.202 Unspecified ovarian cyst, left side (principal); N83.201 Unspecified ovarian cyst, right side; I81 Portal vein thrombosis; Z87.761 Personal history of (corrected) gastroschisis
CPT/HCPCS: 74183; A9585

== ENCOUNTER → 2024-01-23 | Outpatient (CLI) | payer MEDICARE, OTHER ==
--- NOTE | 2024-01-25 19:59 | MR ---
EXAMINATION TYPE: MR pelvis wo/w con DATE OF EXAM: 01/23/2024 10:06 PM CLINICAL INDICATION:Female, 38 years old with history of N83.202 CYST LEFT SIDE N83.201 CYST RIGHT SI DE; PHH, Bilateral ovarian cyst, belly button area pain COMPARISON: 01/18/2024 TECHNIQUE: Triplane multisequence imaging was performed of the pelvis. IV Contrast: 5.5 cc Gadavist FINDINGS: Reproductive: Vagina: Unremarkable. Uterus: The uterus is anteverted in position. Uterus measures 8.1 x 4.4 x 4.8 cm. Cm. Submucosal fibr oid is thought to be present series 411 image 17 measuring 9 mm. The junctional zone is within normal limits for thickness measuring up to 8 mm. There is acute University morphology to the uterine fundu s. Multiple nabothian cysts are seen in the lower uterine segment. Ovaries: Right ovary is posterior to the uterus and measures 35 x 26 x 24 mm. The left ovary measures 36 x 20 x 20 mm. Simple appearing cyst seen on the right measuring up to 30 mm and on the dominant f ollicles in the left measuring up to 15 mm. Bladder: Unremarkable. Bowel: Unremarkable as visualized. Peritoneum: A small amount of free fluid in the pelvis. Lymph nodes: No evidence of adenopathy. Vasculature: Unremarkable. Musculoskeletal: Bone marrow signal is within normal signal intensity. Abdominal wall/soft tissues: Unremarkable. Signal dropout of the liver and chemical shift of phase imaging. IMPRESSION: 1. Bilateral simple appearing ovarian cysts. Surveillance with ultrasound recommended. 2. A submucosal fibroid but to be present. 3. Suspected arcuate morphology to the uterine fundus most likely septate. 4. Mild hepatic steatosis.
== END | disposition home or self-care (01) ==
LOC: RADMRIMAIN 21:30
PROVIDERS: ATTEND Family Medicine
DX: N83.202 Unspecified ovarian cyst, left side (principal); N83.201 Unspecified ovarian cyst, right side; D25.0 Submucous leiomyoma of uterus; K76.0 Fatty (change of) liver, not elsewhere classified; Z87.761 Personal history of (corrected) gastroschisis
CPT/HCPCS: 72197; A9585

== ENCOUNTER 2024-04-13 08:51 | Day surgery (SDC) | payer MEDICARE, OTHER ==
[2024-04-11 10:03] VITALS: BMI 22.6
[2024-04-13] MEDS: IV FLUID CONTINUATION 1,000 ML IV ONE (09:05)
[2024-04-13] MEDS: LACTATED RINGERS 1,000 ML IV SCH (09:19)
[2024-04-13] MEDS ORDERED: MIDAZOLAM 2 MG/2 ML VIAL ONE (09:21)
[2024-04-13] MEDS ORDERED: PROPOFOL 10 MG/ML 20 ML VIAL IV ONE (09:21)
[2024-04-13 09:22] VITALS: TEMP 97
--- NOTE | 2024-04-13 09:42 | P.PCN ---
Date of Procedure: 04/13/24 Procedure(s) Performed: Brief history: Patient is a pleasant 38-year-old white female scheduled for an elective upper endoscopy as well as colonoscopy as a part of evaluation of abdominal pain and change in bowel habits for the last 3 months duration. Has intermittent diarrhea since an episode of gastroenteritis in December of this year. Procedure performed: Esophagogastroduodenoscopy with biopsy Colonoscopy Preoperative diagnosis: Abdominal pain Change in bowel habits Anesthesia: MAC Procedure: After informed consent was obtained from the patient was brought into the endoscopy unit and IV sedation was administered by anesthesia under continuous monitoring. Initially upper endoscopy was done. The Olympus GF 160 video endoscope was inserted inserted into the mouth and esophagus intubated without any difficulty and was gradually advanced into the stomach and duodenum and carefully examined. The bulb and second part of the duodenum appeared normal. Biopsies were done from the duodenum rule out celiac disease. The scope was then withdrawn into the stomach adequately insufflated with air and upon careful examination the antrum had mild gastritis and biopsies were done from this area. Mucosa of the body, cardia and fundus appeared normal. The scope was then withdrawn into the esophagus. The GE junction was located at 40 cm to the incisors. It appeared regular with no erythema erosions or ulcerations. Rest of the esophagus appeared normal. Patient tolerated the procedure well. At this time the patient continued to remain sedation. Initial digital rectal examination was normal. Olympus CF 160 video colonoscope was then inserted into the rectum and gradually advanced to the cecum without any difficulty. Careful examination was performed as the scope was gradually being withdrawn. The prep was excellent. The cecum, ascending colon, transverse colon, descending colon, sigmoid colon and rectum appeared normal. Retroflexion was performed in the rectum and no lesions were noted. Patient tolerated the procedure well. Impression: 1. Upper endoscopy revealed mild antral gastritis and small hiatal hernia 2. Colonoscopy within normal limits with no evidence of colorectal neoplasia Recommendations: Findings of this examination were discussed with the patient as well as family. She was advised to follow-up with the biopsy results. Recommended repeat screening colonoscopy in 10 years
[2024-04-13 10:06] VITALS: BP 108/71; PULSE 72; RESP 18
== END 2024-04-13 10:28 ==
LOC: ORWHC2ENDO 08:51
PROVIDERS: ATTEND Internal Medicine Gastroenterology
DX: R19.7 Diarrhea, unspecified (principal); K29.70 Gastritis, unspecified, without bleeding; K44.9 Diaphragmatic hernia without obstruction or gangrene; K21.9 Gastro-esophageal reflux disease without esophagitis; G35 Multiple sclerosis; J45.909 Unspecified asthma, uncomplicated; G89.29 Other chronic pain; Z88.1 Allergy status to other antibiotic agents; F17.200 Nicotine dependence, unspecified, uncomplicated; Z79.899 Other long term (current) drug therapy
CPT/HCPCS: 81025; 88305; 45378; 43239; J2250; J2704

== ENCOUNTER → 2024-09-20 | Outpatient (CLI) | payer MEDICARE, OTHER ==
--- NOTE | 2024-09-24 15:09 | XR ---
EXAMINATION TYPE: XR hand complete LT DATE OF EXAM: 09/24/2024 2:06 PM COMPARISON: None CLINICAL INDICATION: Female, 39 years old with history of [id number] LT HAND PAIN; YCH, pain TECHNIQUE: XR hand complete LT 3views were obtained. FINDINGS: Normal alignment of the visualized joints. No acute osseous pathology is identified. No e vidence of soft tissue swelling. No significant degeneration IMPRESSION: No acute osseous pathology. [facility], , 09/24/2024 3:07 PM
== END | disposition home or self-care (01) ==
LOC: RADXRYALE 14:04
PROVIDERS: ATTEND Physician Assistant Medical
DX: M25.542 Pain in joints of left hand (principal)